=== PATIENT | male | born 1990 | race Caucasian/White ===

== ENCOUNTER 2016-11-13 07:06 | Inpatient (IN) | payer OTHER ==
[~2016-11-13] VITALS: Ht 170.2 cm; Wt 57.4 kg
[~2016-11-13 07:06] MED LIST: /DIVA50TA PO; /QUET10TA PO; /QUET25TA PO; DEPA500T2 PO; DIVA500T9 PO; REME15TA PO; VENL37CA PO; ZOLO100T PO
[2016-11-13] MEDS ORDERED: LAMI1TAB7 PO (07:23)
[2016-11-13 08:38] LABS: ALBUMIN 4.2 GM/DL (3.2-5.2); ALBUMIN/GLOBULIN RATIO 1.35 (1.00-1.93); ALKALINE PHOSPHATASE 78 U/L (45-117); ALT/SGPT 32 U/L (12-78); ANION GAP 9 MEQ/L (8-16); AST/SGOT 19 U/L (15-37); BILIRUBIN,DIRECT < 0.1 MG/DL (0.0-0.2); BILIRUBIN,TOTAL 0.3 MG/DL (0.2-1.0); BLOOD UREA NITROGEN 14 MG/DL (7-18); CALCIUM LEVEL 8.7 MG/DL (8.5-10.1); CARBON DIOXIDE LEVEL 24 MEQ/L (21-32); CHLORIDE LEVEL 109 MEQ/L (98-107); CREATININE FOR GFR 1.01 MG/DL (0.70-1.30); GLOMERULAR FILTRATION RATE > 60.0 (>60); GLUCOSE, FASTING 75 MG/DL (70-105); POTASSIUM SERUM 3.6 MEQ/L (3.5-5.1); SODIUM LEVEL 142 MEQ/L (136-145); TOTAL PROTEIN 7.3 GM/DL (6.4-8.2)
[2016-11-13 08:46] LABS: MEAN CORPUSCULAR HEMOGLOBIN 32.2 pg (27.0-33.0); MEAN CORPUSCULAR HGB CONC 33.8 g/dl (32.0-36.5); MEAN CORPUSCULAR VOLUME 95.3 fl (80.0-96.0); RED CELL DISTRIBUTION WIDTH 12.4 % (11.5-14.5); WHITE BLOOD COUNT 13.1 K/mm3 (4.0-10.0)
[2016-11-13] MEDS ORDERED: ZYRT10CA PO (10:22)
[2016-11-13] MEDS ORDERED: ACET500T37 PO (10:22)
[2016-11-13] MEDS ORDERED: IBUP40TA PO (10:22)
[2016-11-13 10:27] LABS: METHADONE URINE NEGATIVE (NEGATIVE)
[2016-11-13 14:30] VITALS: BP 119/67
[2016-11-13] MEDS ORDERED: ACETAMINOPHEN TAB 650MG DOSE (2X325MG) PO PRN (15:45)
[2016-11-13] MEDS ORDERED: traZODone 50 MG TAB PO PRN (15:45)
[2016-11-13] MEDS ORDERED: MAALOX 30 ML SUSP *UDC PO PRN (15:45)
[2016-11-13] MEDS ORDERED: MOM 30ML SUSPENSION UDC PO PRN (15:45)
--- NOTE | 2016-11-13 15:48 | HPE ---
DATE OF ADMISSION: 11/13/2016 CHIEF COMPLAINT: Feels stressed. SUBJECTIVE: He is 26 years old. He has been in the . He has a history of bipolar disorder. He says he was diagnosed "years ago," and has most recently been seen on [facility]. Says sees a psychiatrist there. He has been on Lamictal. He thinks it is about 100 mg daily. He attends his treatment there. He came in after he has been feeling increasingly stressed, distressed, upset, angry, marital difficulties. Suspected his partner has been seeing someone else. She had suggested, apparently, that she was talking to this other person. She had gone out at night and had apparently not returned at the time she was supposed to. He decided to drive around to the other person's place. Says he saw her car there, was further upset, came home, felt more despondent and depressed, and cut himself, both shoulders. Has felt suicidal, though suggests that cuts were in order to get emotional relief. Has been depressed, anxious, and upset. Has not been eating much. Says he thinks he has lost weight during these last few weeks as well and has had difficulties at times with concentrating. Says has trouble with things he is supposed to concentrate on. Tends to obsess on concerns regarding his relationship. He feels he obsesses about it. In addition to this, has been going back and forth between partner's place as well as her sister's place. Says gets along with her family and that they care for him. Has not been taking the Lamictal with any regularity the last few weeks. Suggests had stopped taking it deliberately the last few days but prior to that would tend to forget it on occasions. Says he felt that he was doing okay in regard to his mood, other than "the situation." Does not remember the last time he was elated in mood for any sustained period in time, though later suggests that he has had 2 or 3 days of that not too long ago. Last year, suggests was on Depakote and Seroquel. Says felt tired and thought sedated on the Seroquel. He at some point then decided to come off the medicines. Was off them for awhile and then resumed sometime last year. Denies has been drinking. Says that has not been an issue for the last few years. PAST PSYCHIATRIC HISTORY: Has had an inpatient hospitalization here. This was about 3 years ago when he was last year. He was active duty at the time and diagnosed with a mood disorder, adjustment disorder, antisocial personality disorder. Was on Seroquel and Depakote. Denies any symptoms related to posttraumatic stress. Says has had knocks on the head but not while in the . Did not go into details. Currently attends outpatient care. Says he does it on [facility]. He is on Lamictal at 100 mg daily. Does say he feels he did better when on the Depakote but not as well on the Seroquel, which he felt made him quite tired. The patient has had admissions in 2013 and 2012 over here as well. Some of those summaries, by Dr. Mukherjee, are reviewed. SUBSTANCE ABUSE HISTORY: He has used cannabis. Says stopped using alcohol many years ago. SOCIAL HISTORY: He did not go into many details. Please refer to the previous summaries for details of his social history. He is in the . He has been with his partner for the last several years. She has apparently three children of his own, whom he has essentially raised. He and his partner have been having difficulties for the last few months per the patient. MENTAL STATUS EXAMINATION: He is seen in the room in emergency room (ER). He is cooperative though a bit guarded and was pacing the room when I saw him, then sat on the stretcher, quite comfortable for the most part, though later appeared mildly anxious. No psychomotor retardation. He is coherent. No latency of response. Affect is restricted, somewhat intense at times. He is anxious. Has had thoughts of hurting himself. Denies any current plans at present. No homicidal ideas or intents. No evidence of any psychosis. Does not appear to be internally preoccupied at present. He is alert and oriented. No fluctuation of consciousness. Intellect is average, judgement and insight are quite questionable. VITAL SIGNS: Blood pressure 97/53, pulse 87, temperature 99.4. LABORATORY VALUES: Urine toxicology is positive for cannabis. Metabolic profile essentially within normal limits except for a slight increase in chloride at 109. Complete blood count essentially within normal limits except for white cell count of 13.1. ASSESSMENT: 1. Bipolar, type 2 disorder, current episode depressed, rule out mixed episode. 2. Marital difficulties. 3. Limited social supports. 4. Status post cuts on shoulders (the cuts did not require any stitches). Patient has been distressed, anxious, and depressed. Difficulties with his partner. All this exacerbating his mood. He has had suicidal thoughts. He cut himself to obtain relief. Judgment and insight remain questionable. PLAN: He will be admitted to the inpatient psychiatry unit, placed on relevant precautions We will look at resuming his Lamictal at 100 mg daily, possibly consider increasing it or adding valproic acid (Depakote) to help stabilize his moods. We will look at obtaining collateral information as well. He will be encouraged to involve himself in activity in the unit. He will be discharged with followup once he is stable. I will anticipate a 5-7-day stay. The assessment took 35 minutes. MICKI
[2016-11-13] MEDS: lamoTRIgine 100MG TAB PO SCH (16:18)
[2016-11-13 18:00] VITALS: BP 124/59
[2016-11-13] MEDS: OLANZapine ORAL DISINTEGRATING TAB 5MG PO PRN (20:45)
[2016-11-13] MEDS: NICOTINE 21MG/24HR 1 EA TRANSDERMAL TD SCH ×2 (20:46→20:48)
[2016-11-14 06:00] VITALS: BP 113/68
[2016-11-14] MEDS: lamoTRIgine 100MG TAB PO SCH (08:35)
[2016-11-14] MEDS: NICOTINE 21MG/24HR 1 EA TRANSDERMAL TD SCH (08:36)
[2016-11-14] MEDS: OLANZapine ORAL DISINTEGRATING TAB 5MG PO PRN ×2 (11:53→20:33)
[2016-11-14 12:00] VITALS: BP 126/72
[2016-11-14 18:00] VITALS: BP 135/80
--- NOTE | 2016-11-14 18:32 | IPN ---
DATE: 11/14/2016 CHIEF COMPLAINT: Feels stressed. SUBJECTIVE: Seen for followup. Indicates he remains stressed, but suggests perhaps not as intense as he has been recently. Feels depressed and there are times that he is quite irritated. Says he tries to calm himself down, manages to do that. At times it is more difficult. Says had a visit by his partner, Albina, and he is not quite sure where they stand. He wishes to continue the relationship, she is not so sure at present. Says her parents, who he gets along with quite well, want to visit as well. Sleep has been somewhat diminished. Appetite fair. MENTAL STATUS EXAMINATION: Neat, cooperative. Appears anxious, mildly irritated. Paces a bit, but less than he had yesterday. He is coherent. Affect is restricted in range. Vague on suicidal thoughts. No firm plans. No homicidal ideas or intents. Currently no evidence of any psychosis. Cognition is grossly intact. Judgment is questionable, as is insight. ASSESSMENT: 1. Bipolar type 2 disorder, current episode depressed. 2. Rule out mixed episode. PLAN: I would suggest that he continue Lamictal at 100 mg daily. Says he was off it for the last few weeks, and he wishes to use Depakote, which he says he felt better on in the past. I feel that is reasonable. We will start him on Depakote at 250 mg at night and titrate it up accordingly. We will continue the Lamictal for now as well. Further recommendations will be made depending on the clinical picture. He is aware of the risks, benefits and drawbacks of using the Depakote. We spoke about his stressors regarding his relationship. He will be involved in activities within the unit. He will be seeing the psychiatrist assigned to him and the treatment team tomorrow.
[2016-11-14] MEDS ORDERED: DIVALPROEX 250 MG TAB PO SCH (21:00)
--- NOTE | 2016-11-15 05:48 | HPE ---
DATE OF ADMISSION: 11/13/2016 HISTORY OF PRESENT ILLNESS: Please refer to psychiatric history and evaluation for further details on this admission. This examination and history is intended for medical issues, which may need treatment, followup or consult on this 26-year-old male. ALLERGIES: No known drug allergies. SOCIAL HISTORY: He is now out of the . He is without any children. ETHYL ALCOHOL (ETOH) Has a history of alcohol abuse. He quit drinking three months ago. He smokes 1-2 packs of cigarettes per day. RECREATIONAL DRUG USE: Marijuana. PAST MEDICAL HISTORY: Bipolar disorder, environmental allergies, headaches. PAST SURGICAL HISTORY: Corrective surgery for pigeon toes as a child bilaterally. HOME MEDICATIONS: - cetirizine 10 mg by mouth daily as needed for allergies - ibuprofen 400 mg by mouth every six hours as needed for headache - Lamictal 100 mg by mouth daily LABORATORY STUDIES: WBC 13.1, hemoglobin 15.7, hematocrit 46.4, platelets 304. Sodium 142, potassium 3.6, chloride 109, CO2 24, BUN 14, creatinine 1.01, and positive cannabinoids. REVIEW OF SYSTEMS: 10-systems review was done, was essentially negative. He had no complaints. PHYSICAL EXAMINATION: A 26-year-old cooperative male in no acute distress. Height 67 inches, weight 54 kg, body mass index (BMI) 18.6. VITAL SIGNS: Blood pressure 126/72, pulse 88, respirations 167, temperature 98.6. GENERAL: The patient is alert and oriented times three. HEENT: Pupils equal and reactive to light. Extraocular muscles (EOMs) are intact. Sclerae clear. Conjunctivae normal. No facial asymmetry. Pharynx, tongue and gums pink and moist. Tongue is midline. NECK: Supple without lymphadenopathy. No thyromegaly and no goiter. CHEST: Clear to auscultation. No wheeze or retractions. HEART: Regular. ABDOMEN: Benign. Bowel sounds positive. GENITOURINARY/RECTAL: Not done. EXTREMITIES: Equal strength, full range of motion. No cyanosis, clubbing or edema. Peripheral pulses equal and palpable bilaterally. SKIN: He has superficial lacerations bilateral sides of his anterior upper chest, scabbed. No redness or drainage. He has two healing cigarette francisco on his left upper arm which are scabbed. No redness or drainage. IMPRESSION AND PLAN: 1. Psychiatric plan per psychiatry. Monitor chest superficial lacerations for infection. 2. History of environmental allergies. Continue cetirizine. 3. History of headaches. Continue ibuprofen as needed. No acute medical issues.
[2016-11-15 06:18] VITALS: BP 120/58
[2016-11-15] MEDS: lamoTRIgine 100MG TAB PO SCH (08:14)
[2016-11-15] MEDS: NICOTINE 21MG/24HR 1 EA TRANSDERMAL TD SCH (08:14)
[2016-11-15] MEDS ORDERED: QUEtiapine FUMARATE 50 MG TAB PO PRN (11:00)
--- NOTE | 2016-11-15 11:09 | MHIPNPDOC ---
[facility] Progress Note Progress Note DATE OF SERVICE: 11/15/16 HISTORY: day 3 of admission, Pt admitted with SI after cutting himself. h/o bipolar disorder VITAL SIGNS: See below. NEW TEST RESULTS: na CURRENT MEDICATIONS: See below. MENTAL STATUS EXAMINATION: Patient is a 26-year old male, who is dressed in lounge clothes, clean shaven, good eye contact. Speech: Is pressured Language skills are intact Thought processes including: linear Thought content: appropriate. Abstract reasoning, and computation: good. Description of associations: good. Description of abnormal or psychotic thoughts: denies si and hi this morning, no psychotic symptoms illicited. Judgment: limited Insight: poor. Orientation: well oriented in all spheres. Recent and remote memory: intact Attention span and concentration: good Fund of knowledge: full Mood: manic. Affect: congruent DIAGNOSES: 1. Bipolar, type 2 disorder, current episode depressed, rule out mixed episode. 2. Cannabis dependence ASSESSMENT:Pt is very clear on what he will and won't do regarding medications and outpatient treatment. He does not like to feel sedated or slowed down. He states that part of the issue with his current SO is that he has been stopping his medication. [place]. He states every time he is seen he is told the same thing about diet and sleep and it is not helpful to him. Pt admits to insomnia due to thoughts - lots of thoughts all night long. They keep him awake. He has given up his job for school and has prospects of working at [employer] upon discharge. Pt states that Seroquel has been helpful to him both prn and for sleep in low doses. Pt reports he struggles to keep weight on. He admits to enjoying being busy and active He enjoys going to the gym. His slight stature is an issue for his self- esteem and he would benefit from help via therapy in this area. MANAGEMENT PLAN: Will raise Depakote to a therapeutic level. Pt has been on the medication before with good effect. Will add Seroquel at HS and for prn agitation/anxiety. pt states he intends to go to programming on the unit which is recommended. He is also agreeable to either changing outpatient providers or beginning therapy some where that is beneficial to him as he tries to put together his plans for the immediate future. He received information on the risks and benefits of all medication prescribed to him at this time. questions were answered. Metabolic syndrome was discussed. TIME SPENT: 30 minutes. Vital Signs Vital Signs Date Time Temp Pulse Resp B/P (MAP) Pulse Ox O2 Delivery O2 Flow Rate FiO2 11/15/16 06:18 97.7 87 18 120/58 (78) 11/13/16 13:34 97 Room Air Current Medications Current Medications Acetaminophen (Tylenol Tab) 650 mg Q6HP PRN PO HEADACHE or DISCOMFORT; Start at 15:45; Stop 12/13/16 at 15:44 Al Hydrox/Mg Hydrox/Simethicone (Mylanta) 30 ml Q4HP PRN PO HEARTBURN/ INDIGESTION; Start 11/13/16 at 15:45; Stop 12/13/16 at 15:44 Divalproex Sodium (Depakote Er) 500 mg QHS PO ; Start 11/15/16 at 21:00; Stop at 20:59; Status UNV Divalproex Sodium (Depakote) 250 mg QHS PO Last administered on 11/14/16 20:33 ; Start 11/14/16 at 21:00; Stop 11/15/16 at 10:57; Status DC Home Med (Med Rec Complete!) ASDIRECTED XX ; Start 11/13/16 at 10:30; Stop 03/22 at 10:30; Status DC Lamotrigine (LaMICtal) 100 mg DAILY PO Last administered on 11/15/16 08:14; Start 11/13/16 at 09:00; Stop 12/13/16 at 08:59 Magnesium Hydroxide (Milk Of Magnesia) 30 ml DAILYPRN PRN PO CONSTIPATION; Start 11/13/16 at 15:45; Stop 12/13/16 at 15:44 Nicotine (Nicoderm Cq 21mg) 1 patch DAILY TD Last administered on 11/15/16 08: 14; Start 11/12/16 at 09:00; Stop 12/12/16 at 08:59 Olanzapine (ZyPREXA ZYDIS) 5 mg Q4HP PRN PO AGITATION Last administered on 11/14/16 20:33; Start 11/13/16 at 15:45; Stop 11/15/16 at 10:54; Status DC Quetiapine Fumarate (SEROquel) 12.5 mg Q8HP PRN PO ANXIETY/AGITATION; Start 05/22 at 11:00; Stop 12/15/16 at 10:59; Status UNV Quetiapine Fumarate (SEROquel) 50 mg QHS PRN PO INSOMNIA; Start 11/15/16 at 11: 00; Stop 12/15/16 at 10:59; Status UNV Trazodone HCl (Desyrel) 50 mg QHSP PRN PO INSOMNIA Last administered on t 22:04; Start 11/13/16 at 15:45; Stop 11/15/16 at 10:54; Status DC Allergies Coded Allergies: Penicillins (Unverified Allergy, Unknown, unknown , 11/13/16) Sunitha Gage Nov 15, 2016 11:09
[2016-11-15 12:00] VITALS: BP 118/66
[2016-11-15 18:00] VITALS: BP 120/64
[2016-11-15] MEDS ORDERED: DIVALPROEX 500MG *ER* TAB PO SCH (21:00)
[2016-11-16 06:15] VITALS: BP 112/81
[2016-11-16] MEDS: lamoTRIgine 100MG TAB PO SCH (08:15)
[2016-11-16] MEDS: NICOTINE 21MG/24HR 1 EA TRANSDERMAL TD SCH (08:15)
[2016-11-16] MEDS: QUEtiapine FUMARATE 12.5 MG HALF-TAB PO PRN ×2 (10:21→21:01)
--- NOTE | 2016-11-16 11:00 | MHIPNPDOC ---
[facility] Progress Note Progress Note DATE OF SERVICE: 11/16/16 HISTORY: day 4 of admission/pt admitted with SI after relationship problem. h/o cutting VITAL SIGNS: See below. NEW TEST RESULTS: na CURRENT MEDICATIONS: See below. MENTAL STATUS EXAMINATION: Patient is a 26-year old male, who is wearing casual attire, clean shaven, good eye contact, pleasant. Speech: Is spontaneous Language skills are intact Thought processes including: goal directed Thought content: issues that led to him being admitted. Abstract reasoning, and computation: good. Description of associations: good. Description of abnormal or psychotic thoughts:no longer feeling suicidal. denies auditory and perceptual disturbances. No delusions noted. Judgment: limited Insight: good,. Orientation: A & O x 3 Recent and remote memory: grossly intact Attention span and concentration: good. Fund of knowledge: full Mood: depressed. Affect: congruent with broad range. DIAGNOSES: DIAGNOSES: 1. Bipolar, type 2 disorder, current episode depressed, rule out mixed episode. 2. Cannabis dependence ASSESSMENT:pt reporting poor sleep last night, he could not remain asleep. awakened frequently. believes Seroquel dose is insufficient. Tolerating Depakote without side effects. Lamictal unchanged.pt is attending programming and states they are beneficial to. Pt is attempting to connect with former GF just to make sure she and her children are doing okay but has not been able to speak to her - not answering when he calls. Pt's affect has an over tone of anger. Seems to be his baseline. MANAGEMENT PLAN: Discussed with pt the difficulty of treating bipolar disorder when meds are stopped and restarted frequently. Explained the benefits of regular dosing and keeping meds at a therapeutic level. Discussed how the brain can become intolerant of certain meds if they are not dosed consistently. Pt expressed understanding of information shared. Says he will forget to fill a med box. Suggested he set a weekly reminder on his phone so he can do this and remain on a steady course with the medication. Pt will be referred to Dr. Randolph' s service at pts request. Anticipate discharge early next week at the latest. TIME SPENT: 30 minutes. Vital Signs Vital Signs Date Time Temp Pulse Resp B/P (MAP) Pulse Ox O2 Delivery O2 Flow Rate FiO2 11/16/16 06:15 98.5 70 20 112/81 (91) 11/13/16 13:34 97 Room Air Current Medications Current Medications Acetaminophen (Tylenol Tab) 650 mg Q6HP PRN PO HEADACHE or DISCOMFORT; Start at 15:45; Stop 12/13/16 at 15:44 Al Hydrox/Mg Hydrox/Simethicone (Mylanta) 30 ml Q4HP PRN PO HEARTBURN/ INDIGESTION; Start 11/13/16 at 15:45; Stop 12/13/16 at 15:44 Divalproex Sodium (Depakote Er) 500 mg QHS PO Last administered on 11/15/16 20 :57; Start 11/15/16 at 21:00; Stop 12/15/16 at 20:59 Divalproex Sodium (Depakote) 250 mg QHS PO Last administered on 11/14/16 20:33 ; Start 11/14/16 at 21:00; Stop 11/15/16 at 10:57; Status DC Home Med (Med Rec Complete!) ASDIRECTED XX ; Start 11/13/16 at 10:30; Stop 03/22 at 10:30; Status DC Lamotrigine (LaMICtal) 100 mg DAILY PO Last administered on 11/16/16 08:15; Start 11/13/16 at 09:00; Stop 12/13/16 at 08:59 Magnesium Hydroxide (Milk Of Magnesia) 30 ml DAILYPRN PRN PO CONSTIPATION; Start 11/13/16 at 15:45; Stop 12/13/16 at 15:44 Nicotine (Nicoderm Cq 21mg) 1 patch DAILY TD Last administered on 11/16/16 08: 15; Start 11/12/16 at 09:00; Stop 12/12/16 at 08:59 Olanzapine (ZyPREXA ZYDIS) 5 mg Q4HP PRN PO AGITATION Last administered on 11/14/16 20:33; Start 11/13/16 at 15:45; Stop 11/15/16 at 10:54; Status DC Quetiapine Fumarate (SEROquel) 12.5 mg Q8HP PRN PO ANXIETY/AGITATION Last administered on 11/16/16 10:21; Start 11/15/16 at 11:00; Stop 12/15/16 at 10:59 Quetiapine Fumarate (SEROquel) 50 mg QHS PRN PO INSOMNIA Last administered on 20:56; Start 11/15/16 at 11:00; Stop 11/16/16 at 10:42; Status DC Trazodone HCl (Desyrel) 50 mg QHSP PRN PO INSOMNIA Last administered on 22:04; Start 11/13/16 at 15:45; Stop 11/15/16 at 10:54; Status DC Allergies Coded Allergies: Penicillins (Unverified Allergy, Unknown, unknown , 11/13/16) Sunitha Gage Nov 16, 2016 11:00
[2016-11-16 18:36] VITALS: BP 118/69
[2016-11-16] MEDS: DIVALPROEX 250MG *ER* TAB PO SCH (21:01)
[2016-11-16] MEDS: QUEtiapine FUMARATE 100 MG TAB PO SCH (22:30)
[2016-11-17 06:30] VITALS: BP 109/62
[2016-11-17] MEDS: lamoTRIgine 100MG TAB PO SCH (08:08)
[2016-11-17] MEDS: NICOTINE 21MG/24HR 1 EA TRANSDERMAL TD SCH (08:08)
--- NOTE | 2016-11-17 10:31 | IPNPDOC ---
Subjective Date Seen The patient was seen on 11/17/16. Subjective Chief Complaint/HPI The patient is a 26-year-old male admitted with a reason for visit of Depressive Disorder. Events since last encounter To evaluate the patient regarding chest pain. He states he has had sharp pains in the mid chest area. No change with swallowing or rubbing. Some increased with a deep breath. He states sometimes he gets chest discomfort with his anxiety however he states it does not feel like it usually does with his anxiety. He reports no palpitations. No acid taste in his mouth or reflux symptoms. Objective Physical Examination General Exam: Positive: Alert Eye Exam: Positive: PERRLA ENT Exam: Positive: Atraumatic Chest Exam: Positive: Clear to auscultation, Normal air movement Heart Exam: Positive: Rate Normal, Regular Rhythm, Normal S1, Normal S2, Negative: Murmurs, Rubs Extremity Exam: Positive: Normal pulses, Negative: Clubbing, Cyanosis, Edema Skin Exam: Positive: Nl turgor and temperature Assessment /Plan Problems (1) Chest pain Status: Acute Problem Text: * Patient will try Mylanta by mouth 1 now. * Request EKG. * Update CBC/CMP * CIP and troponin 1 now and repeat in 6 hours. * Depakote level. * Monitor. Plan/VTE VTE Prophylaxis Ordered?: No (ambulatory) VS, I&O, 24H, Fishbone Vital Signs/I&O Vital Signs Date Time Temp Pulse Resp B/P (MAP) Pulse Ox O2 Delivery O2 Flow Rate FiO2 11/17/16 06:30 98.8 75 18 109/62 (78) Room Air 11/13/16 13:34 97 Richa Arreaga Nov 17, 2016 10:31
[2016-11-17] MEDS: QUEtiapine FUMARATE 12.5 MG HALF-TAB PO PRN (11:32)
[2016-11-17 11:47] LABS: MEAN CORPUSCULAR HEMOGLOBIN 33.2 pg (27.0-33.0); MEAN CORPUSCULAR HGB CONC 34.9 g/dl (32.0-36.5); MEAN CORPUSCULAR VOLUME 95.4 fl (80.0-96.0); RED CELL DISTRIBUTION WIDTH 12.3 % (11.5-14.5)
[2016-11-17 13:01] LABS: ALBUMIN 3.9 GM/DL (3.2-5.2); ALBUMIN/GLOBULIN RATIO 1.22 (1.00-1.93); ALKALINE PHOSPHATASE 69 U/L (45-117); ALT/SGPT 33 U/L (12-78); ANION GAP 9 MEQ/L (8-16); AST/SGOT 19 U/L (15-37); BILIRUBIN,TOTAL 0.2 MG/DL (0.2-1.0); BLOOD UREA NITROGEN 17 MG/DL (7-18); CALCIUM LEVEL 9.4 MG/DL (8.5-10.1); CARBON DIOXIDE LEVEL 28 MEQ/L (21-32); CHLORIDE LEVEL 104 MEQ/L (98-107); CREATININE FOR GFR 0.99 MG/DL (0.70-1.30); GLOMERULAR FILTRATION RATE > 60.0 (>60); GLUCOSE, FASTING 78 MG/DL (70-105); POTASSIUM SERUM 4.4 MEQ/L (3.5-5.1); SODIUM LEVEL 141 MEQ/L (136-145); TOTAL PROTEIN 7.1 GM/DL (6.4-8.2)
--- NOTE | 2016-11-17 14:27 | MHIPNPDOC ---
[facility] Progress Note Progress Note DATE OF SERVICE: 11/17/16 HISTORY: day 5, pt admitted after harming self due to interpersonal conflict, pt had SI and off meds. VITAL SIGNS: See below. NEW TEST RESULTS: depakote level pending CURRENT MEDICATIONS: See below. MENTAL STATUS EXAMINATION: Patient is a 26-year old male, who is wearing hospital attire, visible in hallways, good eye contact, states needs well, cooperative. Speech: Is clear and spontaneous Language skills are good Thought processes including: goal directed Thought content: appropriate. Abstract reasoning, and computation: good. Description of associations: good. Description of abnormal or psychotic thoughts: none Judgment: fair Insight: fair. Orientation: well oriented in all spheres. Recent and remote memory: intact Attention span and concentration: good. Fund of knowledge: full. Mood: euthymic. Affect: congruent. DIAGNOSES: 1. Bipolar, type 2 disorder, current episode depressed, rule out mixed episode. 2. Cannabis dependence ASSESSMENT:pt is even in mood, improving with decreased anger and calmer affect. pt is participating in groups and compliant with medication changes. reports awakening several times during the night but able to fall back to sleep. gets along well with peers. no obsessions or delusions noted. MANAGEMENT PLAN: order for shoes without laces provided. depakote level pending , continue meds and observation. Enc groups and skill building. TIME SPENT: 15 minutes. Vital Signs Vital Signs Date Time Temp Pulse Resp B/P (MAP) Pulse Ox O2 Delivery O2 Flow Rate FiO2 11/17/16 06:30 98.8 75 18 109/62 (78) Room Air 11/13/16 13:34 97 Laboratory Data 24H Labs Laboratory Tests 2 11/17/16 10:56: Anion Gap 9, Glomerular Filtration Rate > 60.0, Blood Urea Nitrogen 17, Creatinine 0.99, Sodium Level 141, Potassium Level 4.4, Chloride Level 104, Carbon Dioxide Level 28, Calcium Level 9.4, Aspartate Amino Transf (AST/SGOT) 19 , Alanine Aminotransferase (ALT/SGPT) 33, Total Creatine Kinase 98, Alkaline Phosphatase 69, Total Bilirubin 0.2, Total Protein 7.1, Albumin 3.9, Creatine Kinase MB 1.0, Creatine Kinase MB Relative Index 1.02, Troponin I < 0.02, Albumin/Globulin Ratio 1.22, Valproic Acid (Depakene) Level 47.2L CBC/BMP Laboratory Tests 11/17/16 10:56 Red Blood Count 4.82, Mean Corpuscular Volume 95.4, Mean Corpuscular Hemoglobin 33.2 H, Mean Corpuscular Hemoglobin Concent 34.9, Red Cell Distribution Width 12.3, Calcium Level 9.4, Aspartate Amino Transf (AST/SGOT) 19, Alanine Aminotransferase (ALT/SGPT) 33, Total Creatine Kinase 98, Alkaline Phosphatase 69, Total Bilirubin 0.2, Total Protein 7.1, Albumin 3.9 Current Medications Current Medications Acetaminophen (Tylenol Tab) 650 mg Q6HP PRN PO HEADACHE or DISCOMFORT; Start at 15:45; Stop 12/13/16 at 15:44 Al Hydrox/Mg Hydrox/Simethicone (Mylanta) 30 ml Q4HP PRN PO HEARTBURN/ INDIGESTION Last administered on 11/17/16 09:34; Start 11/13/16 at 15:45; Stop 12/13/16 at 15:44 Divalproex Sodium (Depakote Er) 500 mg QHS PO Last administered on 11/15/16 20 :57; Start 11/15/16 at 21:00; Stop 11/16/16 at 11:02; Status DC Divalproex Sodium (Depakote Er) 750 mg QHS PO Last administered on 11/16/16 21 :01; Start 11/16/16 at 21:00; Stop 12/16/16 at 20:59 Divalproex Sodium (Depakote) 250 mg QHS PO Last administered on 11/14/16 20:33 ; Start 11/14/16 at 21:00; Stop 11/15/16 at 10:57; Status DC Home Med (Med Rec Complete!) ASDIRECTED XX ; Start 11/13/16 at 10:30; Stop 03/22 at 10:30; Status DC Lamotrigine (LaMICtal) 100 mg DAILY PO Last administered on 11/17/16 08:08; Start 11/13/16 at 09:00; Stop 12/13/16 at 08:59 Magnesium Hydroxide (Milk Of Magnesia) 30 ml DAILYPRN PRN PO CONSTIPATION; Start 11/13/16 at 15:45; Stop 12/13/16 at 15:44 Nicotine (Nicoderm Cq 21mg) 1 patch DAILY TD Last administered on 11/17/16 08: 08; Start 11/12/16 at 09:00; Stop 12/12/16 at 08:59 Olanzapine (ZyPREXA ZYDIS) 5 mg Q4HP PRN PO AGITATION Last administered on 11/14/16 20:33; Start 11/13/16 at 15:45; Stop 11/15/16 at 10:54; Status DC Quetiapine Fumarate (SEROquel) 12.5 mg Q8HP PRN PO ANXIETY/AGITATION Last administered on 11/17/16 11:32; Start 11/15/16 at 11:00; Stop 12/15/16 at 10:59 Quetiapine Fumarate (SEROquel) 50 mg QHS PRN PO INSOMNIA Last administered on 20:56; Start 11/15/16 at 11:00; Stop 11/16/16 at 10:42; Status DC Quetiapine Fumarate (SEROquel) 100 mg QHS PO Last administered on 11/16/16 22: 30; Start 11/16/16 at 21:00; Stop 12/16/16 at 20:59 Trazodone HCl (Desyrel) 50 mg QHSP PRN PO INSOMNIA Last administered on 22:04; Start 11/13/16 at 15:45; Stop 11/15/16 at 10:54; Status DC Allergies Coded Allergies: Penicillins (Unverified Allergy, Unknown, unknown , 11/13/16) Sunitha Gage Nov 17, 2016 14:27
[2016-11-17 18:24] VITALS: BP 129/82
[2016-11-17] MEDS: DIVALPROEX 250MG *ER* TAB PO SCH (20:36)
[2016-11-17] MEDS: QUEtiapine FUMARATE 100 MG TAB PO SCH (22:18)
--- NOTE | 2016-11-17 22:33 | ECGEPIP ---
Stationary ECG Study [facility] Test Date: 2016-11-17 Pat Name: THERESA WILLETT Department: Room: [place] [address] Gender: M Information Services Assistant: : 1990 Requested By: Richa Arreaga Order Number: [id number] Reading MD: Álvaro Huntley Measurements Intervals [place] Rate: 75 P: 73 DC: 173 QRS: 84 QRSD: 101 T: 67 QT: 359 QTc: 402 Interpretive Statements Normal sinus rhythm Early anterior R-wave progression No significant change since prior tracing of 08/27/2013 Electronically Signed On 11-17-2016 22:33:03 EDT by Álvaro Huntley
[2016-11-18 06:00] VITALS: BP 116/63
[2016-11-18] MEDS: lamoTRIgine 100MG TAB PO SCH (08:19)
[2016-11-18] MEDS: NICOTINE 21MG/24HR 1 EA TRANSDERMAL TD SCH (08:20)
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
[2016-11-18 18:00] VITALS: BP 130/79
[2016-11-18] MEDS: QUEtiapine FUMARATE 12.5 MG HALF-TAB PO PRN (19:03)
[2016-11-18] MEDS: DIVALPROEX 250MG *ER* TAB PO SCH (21:57)
[2016-11-18] MEDS: QUEtiapine FUMARATE 100 MG TAB PO SCH (23:01)
[2016-11-19 06:00] VITALS: BP 112/60
[2016-11-19] MEDS: lamoTRIgine 100MG TAB PO SCH (08:32)
[2016-11-19] MEDS: NICOTINE 21MG/24HR 1 EA TRANSDERMAL TD SCH (08:32)
--- NOTE | 2016-11-19 13:00 | MHIPNPDOC ---
[facility] Progress Note Progress Note DATE OF SERVICE: 11/19/16 HISTORY: day 7 of admission. Pt was suicidal following an argument with SO. Cut himself on both shoulders. VITAL SIGNS: See below. NEW TEST RESULTS: na. CURRENT MEDICATIONS: See below. MENTAL STATUS EXAMINATION: Patient is a 26-year old male, who is wearing lounge clothes, pleasant on approach, hygiene appears good. Speech: Is spontaneous and clear Language skills are good. Thought processes including: linear, organized. Thought content: setting boundaries with GF. Abstract reasoning, and computation : good. Description of associations: good. Description of abnormal or psychotic thoughts: none, no psychosis, denies intent or plan to harm self or others.. Judgment: fair Insight:good, Orientation: oriented in all spheres. Recent and remote memory: grossly intact Attention span and concentration: good Fund of knowledge: full Mood: euthymic Affect: congruent DIAGNOSES: 1. Bipolar, type 2 disorder, current episode depressed, rule out mixed episode. 2. Cannabis dependence ASSESSMENT:pt will be appropriate for discharge after this weekend. He is gaining insight into his behaviors and how to deal with upsets and disappointments more appropriately than cutting himself. Pt has been educated on the need to remain on medication and not stop and start it without discussing with health care providers first. Pt's sleep is beginning to improve since he has been here. He feels more relaxed. He interacts appropriately with staff and peers. He eats at most meals and is pleased that he is gaining some weight. Pt denies thoughts of harming self or others. MANAGEMENT PLAN: Pt states he feels "pretty good" on current medication doses. There is room to increase if necessary once he is discharged if necessary. We are planning a meeting for Tuesday, the soonest we can get all involved in the discharge together. Following the meeting on Tuesday he can be discharged if stable. He wants to terminate with his current psychiatrist and begin seeing Dr. Randolph. H understands he must make [facility] aware of this so they can put a referral in to help him achieve this. Pt was asking about receiving medical marijuana. Was informed that this provider is not prepared to offer that treatment and is not aware that it is available for his diagnosis. TIME SPENT: 15 minutes. Vital Signs Vital Signs Date Time Temp Pulse Resp B/P (MAP) Pulse Ox O2 Delivery O2 Flow Rate FiO2 11/19/16 06:00 98.2 86 16 112/60 (77) 11/17/16 06:30 Room Air 11/13/16 13:34 97 Current Medications Current Medications Acetaminophen (Tylenol Tab) 650 mg Q6HP PRN PO HEADACHE or DISCOMFORT; Start at 15:45; Stop 12/13/16 at 15:44 Al Hydrox/Mg Hydrox/Simethicone (Mylanta) 30 ml Q4HP PRN PO HEARTBURN/ INDIGESTION Last administered on 11/17/16 09:34; Start 11/13/16 at 15:45; Stop 12/13/16 at 15:44 Divalproex Sodium (Depakote Er) 500 mg QHS PO Last administered on 11/15/16 20 :57; Start 11/15/16 at 21:00; Stop 11/16/16 at 11:02; Status DC Divalproex Sodium (Depakote Er) 750 mg QHS PO Last administered on 11/18/16 21 :57; Start 11/16/16 at 21:00; Stop 12/16/16 at 20:59 Divalproex Sodium (Depakote) 250 mg QHS PO Last administered on 11/14/16 20:33 ; Start 11/14/16 at 21:00; Stop 11/15/16 at 10:57; Status DC Home Med (Med Rec Complete!) ASDIRECTED XX ; Start 11/13/16 at 10:30; Stop 03/22 at 10:30; Status DC Lamotrigine (LaMICtal) 100 mg DAILY PO Last administered on 11/19/16 08:32; Start 11/13/16 at 09:00; Stop 12/13/16 at 08:59 Magnesium Hydroxide (Milk Of Magnesia) 30 ml DAILYPRN PRN PO CONSTIPATION; Start 11/13/16 at 15:45; Stop 12/13/16 at 15:44 Nicotine (Nicoderm Cq 21mg) 1 patch DAILY TD Last administered on 11/19/16 08: 32; Start 11/12/16 at 09:00; Stop 12/12/16 at 08:59 Olanzapine (ZyPREXA ZYDIS) 5 mg Q4HP PRN PO AGITATION Last administered on 11/14/16 20:33; Start 11/13/16 at 15:45; Stop 11/15/16 at 10:54; Status DC Quetiapine Fumarate (SEROquel) 12.5 mg Q8HP PRN PO ANXIETY/AGITATION Last administered on 11/18/16 19:03; Start 11/15/16 at 11:00; Stop 12/15/16 at 10:59 Quetiapine Fumarate (SEROquel) 50 mg QHS PRN PO INSOMNIA Last administered on 20:56; Start 11/15/16 at 11:00; Stop 11/16/16 at 10:42; Status DC Quetiapine Fumarate (SEROquel) 100 mg QHS PO Last administered on 11/18/16 23: 01; Start 11/16/16 at 21:00; Stop 12/16/16 at 20:59 Trazodone HCl (Desyrel) 50 mg QHSP PRN PO INSOMNIA Last administered on 22:04; Start 11/13/16 at 15:45; Stop 11/15/16 at 10:54; Status DC Allergies Coded Allergies: Penicillins (Unverified Allergy, Unknown, unknown , 11/13/16) Sunitha Gage Nov 19, 2016 13:00
[2016-11-19] MEDS: QUEtiapine FUMARATE 12.5 MG HALF-TAB PO PRN (15:45)
[2016-11-19 18:00] VITALS: BP 124/61
[2016-11-19] MEDS: DIVALPROEX 250MG *ER* TAB PO SCH (21:39)
[2016-11-19] MEDS: QUEtiapine FUMARATE 100 MG TAB PO SCH (22:55)
[2016-11-20 06:38] VITALS: BP 101/61
[2016-11-20] MEDS: lamoTRIgine 100MG TAB PO SCH (08:36)
[2016-11-20] MEDS: NICOTINE 21MG/24HR 1 EA TRANSDERMAL TD SCH (08:36)
[2016-11-20 18:33] VITALS: BP 135/76
[2016-11-20] MEDS: DIVALPROEX 250MG *ER* TAB PO SCH (21:48)
[2016-11-20] MEDS: QUEtiapine FUMARATE 100 MG TAB PO SCH (23:18)
[2016-11-21 06:20] VITALS: BP 112/57
[2016-11-21] MEDS: lamoTRIgine 100MG TAB PO SCH (08:38)
[2016-11-21] MEDS: NICOTINE 21MG/24HR 1 EA TRANSDERMAL TD SCH (08:39)
[2016-11-21 18:00] VITALS: BP 120/66
[2016-11-21] MEDS: QUEtiapine FUMARATE 12.5 MG HALF-TAB PO PRN (19:59)
[2016-11-21] MEDS: DIVALPROEX 250MG *ER* TAB PO SCH (21:44)
[2016-11-21] MEDS: QUEtiapine FUMARATE 100 MG TAB PO SCH (23:02)
[2016-11-22 07:22] VITALS: BP 135/65
[2016-11-22] MEDS: NICOTINE 21MG/24HR 1 EA TRANSDERMAL TD SCH (08:14)
[2016-11-22] MEDS: lamoTRIgine 100MG TAB PO SCH (08:14)
[2016-11-22] MEDS ORDERED: DEPA250T2 PO (08:52)
[2016-11-22] MEDS ORDERED: QUET1TAB8 PO (08:53)
--- NOTE | 2016-11-22 10:41 | MHDSPDOC ---
[facility] Discharge Summary Discharge Summary DATE OF ADMISSION: Nov 13, 2016 at 13:22 DATE OF DISCHARGE: November 22, 2016 at Noon DISCHARGE DIAGNOSES: 1. bipolar disorder type II, most recent episode depressed, without psychotic features. 2. Cannabis dependence REASON FOR ADMISSION: apparently pt and significant other have been at odds about their relationship. He is very attached to her and her children. They argued and she left home and he found her car at a person's house he did not want her to visit. It may have been another's man's house. The patient is not . He started staying at his girlfriends, sister's house. Apparently the patient resumed old behavior of self-mutilation and began cutting himself bilaterally on the shoulders. He has about 4-5 superficial cuts to both shoulders.They have been healing well. He has other cuts to left forearm that are still visible from years ago when he was cutting. CONSULTANTS INVOLVED: Lab, medicine, psychiatry. TREATMENT AND PROGRESS ON THE UNIT : pt was an active participant in his care from the start of admission. He admitted he stopped his medication for about a month or so and was becoming more irritable over time. He was on Depakote previously but had stopped it in favor or lamotrigine at 100 mg. He denied any difficulty with taking either lamotrigine or Depakote. He also said he had been having trouble sleeping due to racing thoughts and stated Seroquel had been helpful to him in the past. Pt attended therapeutic programming the entire time he was on the unit. He identifies learning some more appropriate ways to deal with his frustration an danger than cutting himself. He can use music, skateboarding and spending time outdoors as a way to de-stress. He also states he has formed a friendship with his roommate and he hopes they can remain in contact after discharge. HOSPITAL COURSE: Salvador was agreeable to lab tests for Depakote level. on 11.17 level was 47.2 @ 10:56 a.m. At 16:30 level was 53.1 that same day. Level redone on 11/21 at 7 p.m. was 47.9. Pt stated he feels the medication has helped him feel more level. He has less moods that are up and then down. He reports good sleep. Denies side effects to meds. He is using Seroquel at to help with racing thoughts. He was on lamotrigine when admitted and no adjustments were made to this medication. DISCHARGE ASSESSMENT: Discharge planning meeting held with pt, ex-girlfriend Albina, sister and niece of ex-girlfriend. It was a cordial meeting and the ladies seem to have Salvador's best interest at heart. They asked questions to help them know when Salvador was decompensating and needing help. Salvador was able to provide that information himself, identifying insomnia times several days as a main indicator. He will be staying at the sister's house. He has his own transportation and a potential job at [employer] [place] after discharge. Pt denies thoughts plan or intentions of harming self or others. His thinking is clear and coherent. He is sleeping well. He states he is accepting of Albina' s decision to end their boyfriend girlfriend relationship and stay friends only. He hopes to see her children to visit with them from time to time. Pt agrees to continue medications and not stop them abruptly. He is agreeable to attending [facility] until he receives a referral and appt to see providers at the [facility]. Pt states he understands risks and benefits to his medications and is aware that he should have his Depakote level repeated at the end of the month. MENTAL STATUS EXAMINATION ON DISCHARGE: Patient is a 26-year old male, who is dressed in street clothes, appears clean, unshaven, makes good eye contact, calm. Speech is clear and spontaneous. Language skills are good. Thought processes including: linear and goal directed Thought content: appropriate. Abstract reasoning, and computation: good. Description of associations: good. Description of abnormal or psychotic thoughts: no psychosis observed during this admission. Judgment: limited Insight: fair Orientation to person, place, time and situation. Recent and remote memory: appears intact. Attention span and concentration: good. Fund of knowledge: full Mood: euthymic Affect: broad with range MEDICATIONS ON DISCHARGE: - Depakote for impulse control (Depakene) - lamotrigine 100 mg for mood stabilization, decrease occurrence of depressive episodes. - Seroquel for racing thoughts, mood stabilization. PLAN/FOLLOWUP ARRANGEMENTS: [facility] tomorrow. The amount of time spent in the coordination of care for this patient was approximately 45 minutes. Vital Signs/I&Os Vital Signs Date Time Temp Pulse Resp B/P (MAP) Pulse Ox O2 Delivery O2 Flow Rate FiO2 11/22/16 07:22 98.9 60 18 135/65 (88) 11/19/16 10:22 Room Air Laboratory Data Labs 24H Laboratory Tests 2 11/21/16 19:23: Valproic Acid (Depakene) Level 47.9L Medications Scheduled Divalproex Sodium (Depakote ER) 250 Mg Tab, 750 MG PO QHS for MOOD for 7 Days, # 21 Lamotrigine (Lamictal) 100 Mg Tab, 100 MG PO DAILY, (Reported) Quetiapine Fumerate (Quetiapine Fumarate) 100 Mg Tab, 100 MG PO QHS for MOOD for 7 Days, #7 Scheduled PRN Acetaminophen (Acetaminophen Extra Stren) 500 Mg Tab, 1,000 MG PO for PAIN, ( Reported) Cetirizine HCl (Zyrtec Allergy) 10 Mg Cap, 10 MG PO DAILY PRN for allergies, ( Reported) Ibuprofen (Ibuprofen) 400 Mg Tab, 400 MG PO for PAIN, (Reported) Allergies Coded Allergies: Penicillins (Unverified Allergy, Unknown, unknown , 11/13/16) Sunitha Gage Nov 22, 2016 10:41
== END 2016-11-22 11:40 | disposition home or self-care (01) | DRG 885 ==
LOC: M ED 08:18 → M ED INP 13:22 → M PSY 14:18
PROVIDERS: ADMIT Psychiatry & Neurology Psychiatry; ATTEND Psychiatry & Neurology Psychiatry
DX: F31.81 Bipolar II disorder (principal); Z68.1 Body mass index [BMI] 19.9 or less, adult; F12.20 Cannabis dependence, uncomplicated; Z91.5 Personal history of self-harm; Z79.899 Other long term (current) drug therapy; Z88.0 Allergy status to penicillin; F17.210 Nicotine dependence, cigarettes, uncomplicated; J30.9 Allergic rhinitis, unspecified; R51 Headache; R07.9 Chest pain, unspecified

== ENCOUNTER 2017-03-14 18:14 | Inpatient (IN) | payer OTHER ==
[~2017-03-14] VITALS: Ht 170.2 cm; Wt 58.0 kg
[~2017-03-14 18:14] MED LIST changes: +ACET-683 PO; +DEPA250T2 PO; +IBUP40TA PO; +LAMI1TAB7 PO; +QUET1TAB8 PO; +ZYRT10CA PO
[2017-03-14 19:47] LABS: MEAN CORPUSCULAR HEMOGLOBIN 32.6 pg (27.0-33.0); MEAN CORPUSCULAR VOLUME 93.2 fl (80.0-96.0); RED CELL DISTRIBUTION WIDTH 12.6 % (11.5-14.5); WHITE BLOOD COUNT 12.3 10^3/uL (4.0-10.0)
[2017-03-14 20:14] LABS: ALBUMIN/GLOBULIN RATIO 1.29 (1.00-1.93); ALKALINE PHOSPHATASE 55 U/L (45-117); ALT/SGPT 27 U/L (12-78); ANION GAP 7 MEQ/L (8-16); AST/SGOT 25 U/L (15-37); BILIRUBIN,DIRECT < 0.1 MG/DL (0.0-0.2); BILIRUBIN,TOTAL 0.4 MG/DL (0.2-1.0); BLOOD UREA NITROGEN 8 MG/DL (7-18); CALCIUM LEVEL 9.2 MG/DL (8.5-10.1); CARBON DIOXIDE LEVEL 26 MEQ/L (21-32); CHLORIDE LEVEL 107 MEQ/L (98-107); CREATININE FOR GFR 0.79 MG/DL (0.70-1.30); GLOMERULAR FILTRATION RATE > 60.0 (>60); GLUCOSE, FASTING 75 MG/DL (70-105); POTASSIUM SERUM 3.7 MEQ/L (3.5-5.1); SODIUM LEVEL 140 MEQ/L (136-145); TOTAL PROTEIN 7.1 GM/DL (6.4-8.2)
[2017-03-14 20:18] LABS: METHADONE URINE NEGATIVE (NEGATIVE)
[2017-03-14] MEDS: ARIPiprazole 10 MG TAB PO SCH (21:00)
[2017-03-14] MEDS ORDERED: DEPA250T2 PO (21:14)
[2017-03-14] MEDS ORDERED: HALOPERIDOL 5 MG/ML VIAL (J1630) IM ONE (21:30)
[2017-03-14] MEDS ORDERED: ACETAMINOPHEN TAB 650MG DOSE (2X325MG) PO PRN (21:30)
[2017-03-14] MEDS ORDERED: diphenhydrAMINE INJ 50MG/ML VIAL (J1200) IM ONE (21:30)
[2017-03-14] MEDS ORDERED: MOM 30ML SUSPENSION UDC PO PRN (21:30)
[2017-03-14] MEDS ORDERED: LORazepam 2 MG/ML VIAL (J2060) IM ONE (21:30)
[2017-03-14] MEDS ORDERED: MAALOX 30 ML SUSP *UDC PO PRN (21:30)
[2017-03-15] MEDS ORDERED: diphenhydrAMINE 50 MG CAP PO PRN (05:00)
[2017-03-15 08:32] VITALS: BP 113/61
--- NOTE | 2017-03-15 08:56 | HPEPDOC ---
[facility] Medical History & Physical Date of Admission Mar 14, 2017 History and Physical PCP: [facility] ATTENDING: Dr. Johnny Shaw HPI: 26yoM admitted to [facility] for bipolar disorder, being medically examined today. No acute medical complaints today. Patient states he has been noncompliant with his medication. Patient states he cut his left arm with a bic razor. Patient states he takes Depakote for his mood however had not been taking it recently. Denies any fevers, chills, weakness, fatigue, CEE, CP, SOB, cough, palpitations, abdominal pain, N/V/D or changes in bowel or bladder habits. PMHx: Bipolar disorder anxiety depression ADHD H/O SI/Suicide attempt. Attempted hanging in past. Substance use Self-mutilation Chronic headache History of skull fracture as a child related to fall h/o non compliance PSHX: Corrective surgery for intoeing as a child SOCHX: Resides in: [facility] Marital Status: Single Kids: 3 Employment: [employer] employee Tobacco use: 2 ppd ETOH: Denies Illicit Drugs: Marijuana daily IV Drug Use: Denies Tattoos done unprofessionally: Patient states "most of them" FAMHX: Mother: Alive, well Father: Alive, well Siblings: Alive, well Children: Alive, well Unexpected deaths due to medical reasons: None. ROS: As noted in HPI, otherwise 11pt ROS of systems reviewed and unremarkable. PE: GEN: 26yoM, appears stated age. Thin appearing. No acute distress. Alert and oriented x 3. Agitated at times during interview. HEENT: Normocephalic, atraumatic. Pupils are equal, round, and reactive to light. Extraocular movements are intact. No nystagmus appreciated. Sclera are nonicteric. Conjunctiva without injection. Nose midline. Nasal turbinates without bogginess. EACs both patent BL. TMs both visualized and palacios with good cone of light, no bulging or erythema. No facial asymmetry. Moist mucous membranes. Dentition fair. Pharynx pink and moist, no cobblestoning. Neck supple , trachea midline. No lymphadenopathy or thyromegaly appreciated. CHEST: Regular rate and rhythm, +S1, +S2 LUNGS: Clear to auscultation bilaterally. No wheezes, rales, or rhonchi. Breathing appears symmetric and easy. Patient is speaking in full sentences. No accessory muscle use. ABD: Round, soft, non-tender, non-distended. +Bowel sounds throughout. No rebound or guarding. No costovertebral angle tenderness. EXT: Pulses 2+ bilaterally dorsalis pedis and radial. No lower extremity edema appreciated. SKIN: [place], dry, warm. Superficial lacerations are noted to left forearm (pt carved the word "loser" and "POS"). NEURO: Alert and oriented x 3. Cranial nerves III-XII are intact. No focal deficits appreciated. EKG: Pending A&P: 26yoM admitted to [facility] for bipolar disorder 1. Psych. Plan per Psychiatry. Obtain baseline EKG to assure the safety of psychiatric medications as they can prolong the QT interval. 2. Nicotine dependence. Patch available. 3. Left forearm lacerations. Apply dry dressing twice a day. Apply Bactroban twice a day. Update Td. Monitor. 4. Follow up with PCP on discharge. 5. Substance use per psychiatry. Tattoos done unprofessionally. Patient agrees to HIV and hepatitis screening. Leukocytosis. Patient is afebrile. Asymptomatic. Recheck CBC in a.m. Staff member Syed present throughout exam. Vital Signs Vital Signs Date Time Temp Pulse Resp B/P (MAP) Pulse Ox O2 Delivery O2 Flow Rate FiO2 03/15/17 08:32 98.6 76 20 113/61 (78) 98 Room Air Laboratory Data Labs 24H Laboratory Tests 2 03/14/17 19:23: Urine Amphetamines Screen NEGATIVE, Urine Benzodiazepines Screen NEGATIVE, Urine Opiates Screen NEGATIVE, Urine Methadone Screen NEGATIVE, Urine Barbiturates Screen NEGATIVE, Urine Phencyclidine Screen NEGATIVE, Urine Cocaine Metabolite Screen NEGATIVE, Urine Cannabinoids Screen NEGATIVE 03/14/17 19:31: Anion Gap 7L, Glomerular Filtration Rate > 60.0, Calcium Level 9.2, Aspartate Amino Transf (AST/SGOT) 25, Alanine Aminotransferase (ALT/SGPT) 27, Alkaline Phosphatase 55, Total Bilirubin 0.4, Direct Bilirubin < 0.1, Total Protein 7.1, Albumin 4.0, Albumin/Globulin Ratio 1.29, Thyroid Stimulating Hormone (TSH) 1.460, Salicylates Level 3.8L, Acetaminophen Level < 2.0L, Valproic Acid ( Depakene) Level 35.9L, Ethyl Alcohol Level < 0.003 CBC/BMP Laboratory Tests 03/14/17 19:31 Red Blood Count 4.57, Mean Corpuscular Volume 93.2, Mean Corpuscular Hemoglobin 32.6, Mean Corpuscular Hemoglobin Concent 35.0, Red Cell Distribution Width 12.6 Home Medications Scheduled Divalproex Sodium (Depakote ER) 250 Mg Tab, 750 MG PO QHS for MOOD Allergies Coded Allergies: Penicillins (Unverified Allergy, Unknown, unknown , 03/14/17) Patient was told allergy per mother, but not sure of reaction Richa Arreaga Mar 15, 2017 08:56
[2017-03-15] MEDS: **PENDING PPD ENTRY XX SCH (09:00)
[2017-03-15] MEDS ORDERED: MUPIROCIN 2% OINT 22 GM TUBE TOP PRN (09:00)
[2017-03-15] MEDS: ARIPiprazole 10 MG TAB PO SCH (09:00)
[2017-03-15] MEDS ORDERED: TETANUS/DIPHTHERIA TOX ADSORB ADULT 0.5ML SYR/VIAL (90714) IM ONE (09:00)
[2017-03-15] MEDS: LORazepam 1 MG TAB PO SCH ×2 (09:00→21:33)
[2017-03-15] MEDS ORDERED: **PENDING PPD ENTRY XX SCH (09:00)
[2017-03-15] MEDS ORDERED: TUBERCULIN PPD 5 UNITS/0.1 ML ID ONE (14:30)
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
[2017-03-15] MEDS: DIVALPROEX 500 MG TAB PO SCH ×2 (15:40→21:34)
[2017-03-15] MEDS ORDERED: TUBERCULIN PPD 5 UNITS/0.1 ML ID SCH (16:30)
--- NOTE | 2017-03-15 17:05 | ECGEPIP ---
Stationary ECG Study [facility] Test Date: 2017-03-15 Pat Name: THERESA WILLETT Department: Room: [place] [address] Gender: M General Teller: DONTRELL : 1990 Requested By: Richa Arreaga Order Number: [id number] Reading MD: Cecilia Sutton Measurements Intervals [place] Rate: 69 P: 71 NC: 165 QRS: 81 QRSD: 98 T: 68 QT: 366 QTc: 394 Interpretive Statements SINUS RHYTHM WITH SINUS ARRHYTHMIA POSSIBLE RIGHT VENTRICULAR CONDUCTION DELAY EARLY REPOLARIZATION CHANGES STABLE C/W 11/17/16 Electronically Signed On 03-15-2017 17:04:55 EDT by Cecilia Sutton
[2017-03-15 18:00] VITALS: BP 113/55
[2017-03-15] MEDS: NICOTINE 21MG/24HR 1 EA TRANSDERMAL TD SCH (18:04)
[2017-03-15] MEDS: QUEtiapine FUMARATE 50 MG TAB PO SCH (21:33)
[2017-03-16 06:48] VITALS: BP 107/57
[2017-03-16 08:31] LABS: MEAN CORPUSCULAR HEMOGLOBIN 32.1 pg (27.0-33.0); MEAN CORPUSCULAR VOLUME 94.6 fl (80.0-96.0); RED CELL DISTRIBUTION WIDTH 12.5 % (11.5-14.5); WHITE BLOOD COUNT 6.9 10^3/uL (4.0-10.0)
[2017-03-16] MEDS: DIVALPROEX 500 MG TAB PO SCH ×2 (08:41→21:02)
[2017-03-16] MEDS: LORazepam 1 MG TAB PO SCH ×2 (08:42→21:02)
[2017-03-16] MEDS: NICOTINE 21MG/24HR 1 EA TRANSDERMAL TD SCH (08:43)
[2017-03-16] MEDS: **PENDING PPD ENTRY XX SCH (09:00)
[2017-03-16] MEDS: LORazepam 1 MG TAB PO PRN ×2 (12:09→18:08)
--- NOTE | 2017-03-16 13:21 | MHIPNPDOC ---
[facility] Progress Note Progress Note DATE OF SERVICE: 03/16/17 HISTORY: . Patient is a 26-year-old male, that has history of bipolar disorder versus schizoaffective disorder, depressed type. Patient was admitted with worsening symptoms of depression and ideas to kill himself. Patient cut his arm carving the word "loser" in his left forearm. When asked about suicidal ideas, denied wanting to hurt himself now, and denied today wants to . When talking about superintendent terminal care in order to address her depressive symptoms and suicidal ideas said that he wants to go back home to see his stepchildren and continue going to school. Denied any side effects of depakote. VITAL SIGNS: See below. NEW TEST RESULTS: . CURRENT MEDICATIONS: See below. MENTAL STATUS EXAMINATION: General appearance: Patient is a -year old male, who is . 26 years old male sitting wearing casual clothes, somewhat cooperative, irritable, looks stated age, left arm with superficial lacerations as he carved in his skin the word loser Speech: . Fluent and coherent Thought processes: . mostly linear Thought content: . Denied suicidal or homicidal ideas, but has passive wishes. No delusions elicited. No perceptual disturbances Abstract reasoning and computation: . Adequate Description of associations: . No loose associations Description of abnormal or psychotic thoughts: no Psychosis Judgment: . Poor Insight: . Limited Orientation: . Oriented x 3 Recent and remote memory: . Intact Attention span and concentration: . Diminished. Concentration Fund of knowledge: . Average Mood: "ok" affect: constricted DIAGNOSES: 1. .Bipolar disorder, most recent episode depressed. Rule out substance-induced mood disorder 2. . Cannabis abuse versus dependence 2. . 3. . ASSESSMENT: 26 years old male that was admitted with worsening symptoms of depression and suicidal ideas. Patient cut himself yesterday and wanted to hurt himself by cutting when brought to the emergency room. He was aggressive and agitated, had to be restrained and chemically sedated. Patient continues to endorse passive ideas of self-harm. He wishes to be and is reluctant to try any other medications than the Depakote as he thinks is the only medication that worked for him. However, he cannot guarantee that he will not try to kill himself when out of the hospital. He denied today having ideas of self harm , no side effects of depakote and is not interested in log term care treatment . MANAGEMENT PLAN: . Continue depakote 500 mg bid, levels Tuesday morning social work for discharge plan family meeting TIME SPENT: [25] minutes. Vital Signs Vital Signs Date Time Temp Pulse Resp B/P (MAP) Pulse Ox O2 Delivery O2 Flow Rate FiO2 03/16/17 06:48 98.4 62 16 107/57 (74) 03/15/17 08:32 98 Room Air Laboratory Data CBC/BMP Laboratory Tests 03/16/17 08:02 Red Blood Count 4.45, Mean Corpuscular Volume 94.6, Mean Corpuscular Hemoglobin 32.1, Mean Corpuscular Hemoglobin Concent 34.0, Red Cell Distribution Width 12.5 Current Medications Current Medications Acetaminophen (Tylenol Tab) 650 mg Q6HP PRN PO HEADACHE or DISCOMFORT Last administered on 03/15/17 17:56; Start 03/14/17 at 21:30; Stop 04/13/17 at 21: 29 Al Hydrox/Mg Hydrox/Simethicone (Mylanta) 30 ml Q4HP PRN PO HEARTBURN/ INDIGESTION; Start 03/14/17 at 21:30; Stop 04/13/17 at 21:29 Aripiprazole (AbiLIFY) 5 mg BID PO ; Start 03/14/17 at 21:00; Stop 03/15/17 at 14:28; Status DC Diphenhydramine HCl (Benadryl) 50 mg TIDP PRN PO EXTRA PYRAMIDAL SIDE EFFECTS; Start 03/15/17 at 05:00; Stop 04/14/17 at 04:59 Divalproex Sodium (Depakote) 500 mg BID PO Last administered on 03/16/17 08: 41; Start 03/15/17 at 09:00; Stop 04/14/17 at 08:59 Haloperidol (Haldol) 10 mg QIDP PRN PO AGGITATION; Start 03/15/17 at 05:00; Stop 04/14/17 at 04:59 Home Med (Med Rec Complete!) ASDIRECTED XX ; Start 03/14/17 at 21:30; Stop 03/14/17 at 21:30; Status DC Lorazepam (Ativan) 1 mg BID PO Last administered on 03/16/17 08:42; Start at 09:00; Stop 03/22/17 at 08:59 Lorazepam (Ativan) 1 mg QIDP PRN PO ANXIETY Last administered on 03/16/17 12: 09; Start 03/15/17 at 05:00; Stop 03/22/17 at 04:59 Magnesium Hydroxide (Milk Of Magnesia) 30 ml DAILYPRN PRN PO CONSTIPATION; Start 03/14/17 at 21:30; Stop 04/13/17 at 21:29 Mupirocin (Bactroban 2% Ointment) 1 dose BID PRN TOP REDNESS/IRRITATION; Start 03/15/17 at 09:00; Stop 04/14/17 at 08:59 Nicotine (Nicoderm Cq 21mg) 1 patch DAILY TD Last administered on 03/16/17 08 :43; Start 03/15/17 at 09:00; Stop 04/14/17 at 08:59 Non-Formulary Medication ( See Comment Field Below ) SEE COMMENTS SECTION 1T @10 XX ; Start 03/17/17 at 10:00; Stop 03/17/17 at 10:00; Status DC Non-Formulary Medication ( See Comment Field Below ) SEE LABEL COMMENTS DAILY XX ; Start 03/15/17 at 09:00; Stop 04/14/17 at 08:59 Non-Formulary Medication ( See Comment Field Below ) SEE LABEL COMMENTS DAILY XX ; Start 03/15/17 at 09:00; Stop 04/14/17 at 08:59; Status Cancel Quetiapine Fumarate (SEROquel) 150 mg QHS PO Last administered on 03/15/17 21 :33; Start 03/15/17 at 21:00; Stop 04/14/17 at 20:59 Tuberculin PPD (Aplisol, Ppd) 5 units ASDIRECTED ID ; Start 03/15/17 at 16:30; Stop 04/14/17 at 16:29 Allergies Coded Allergies: Penicillins (Unverified Allergy, Unknown, unknown , 03/14/17) Patient was told allergy per mother, but not sure of reaction ELIZABETH GIBBONS MD Mar 16, 2017 12:43
[2017-03-16] MEDS: HALOPERIDOL 10 MG TAB PO PRN (17:56)
[2017-03-16 18:00] VITALS: BP 110/72
[2017-03-16] MEDS: QUEtiapine FUMARATE 50 MG TAB PO SCH (21:03)
[2017-03-17 06:31] VITALS: BP 97/56
[2017-03-17] MEDS ORDERED: PPD DOCUMENTATION ENTRY MISC XX SCH (10:00)
[2017-03-17] MEDS: DIVALPROEX 500 MG TAB PO SCH ×2 (10:03→21:00)
[2017-03-17] MEDS: LORazepam 1 MG TAB PO SCH ×2 (10:03→21:00)
[2017-03-17] MEDS: NICOTINE 21MG/24HR 1 EA TRANSDERMAL TD SCH (10:04)
[2017-03-17] MEDS ORDERED: TUBERCULIN PPD 5 UNITS/0.1 ML ID ONE (12:00)
[2017-03-17] MEDS: LORazepam 1 MG TAB PO PRN (12:04)
--- NOTE | 2017-03-17 12:52 | MHIPNPDOC ---
[facility] Progress Note Progress Note DATE OF SERVICE: 03/17/17 HISTORY: . Patient is a 26-year-old male, that has history of bipolar disorder versus schizoaffective disorder, depressed type. Patient was admitted with worsening symptoms of depression and ideas to kill himself. Patient cut his arm carving the word "loser" in his left forearm. When asked about suicidal ideas, he said to SW that he will try to kill himself after discharge from the hospital. He was very upset and was agitated as he wants to go home and not go to a exterminator helper treatment facility. He was not able to say that he will not hurt self at home. Denied any side effects of depakote. VITAL SIGNS: See below. NEW TEST RESULTS: . CURRENT MEDICATIONS: See below. MENTAL STATUS EXAMINATION: General appearance: Patient is a -year old male, who is . 26 years old male sitting wearing casual clothes, somewhat cooperative, irritable, looks stated age, left arm with superficial lacerations as he carved in his skin the word loser Speech: . Fluent and coherent Thought processes: . mostly linear Thought content: . Denied suicidal or homicidal ideas, but has passive wishes. No delusions elicited. No perceptual disturbances Abstract reasoning and computation: . Adequate Description of associations: . No loose associations Description of abnormal or psychotic thoughts: no Psychosis Judgment: . Poor Insight: . Limited Orientation: . Oriented x 3 Recent and remote memory: . Intact Attention span and concentration: . Diminished. Concentration Fund of knowledge: . Average Mood: "ok" affect: irritable DIAGNOSES: 1. .Bipolar disorder, most recent episode depressed. Rule out substance-induced mood disorder 2. . Cannabis abuse versus dependence 2. . 3. . ASSESSMENT: 26 years old male that was admitted with worsening symptoms of depression and suicidal ideas. Patient cut himself yesterday and wanted to hurt himself by cutting when brought to the emergency room. He was aggressive and agitated, had to be restrained and chemically sedated. Patient continues to endorse passive ideas of self-harm. He wishes to be and is reluctant to try any other medications than the Depakote as he thinks is the only medication that worked for him. However, he cannot guarantee that he will not try to kill himself when out of the hospital , no side effects of depakote and is not interested in log term care treatment . MANAGEMENT PLAN: . Continue depakote 500 mg bid, levels Tuesday morning social work for discharge plan to exterminator helper care, 2 PC legal status family meeting TIME SPENT: [25] minutes. Vital Signs Vital Signs Date Time Temp Pulse Resp B/P (MAP) Pulse Ox O2 Delivery O2 Flow Rate FiO2 03/17/17 06:31 97.4 53 16 97/56 (70) 03/15/17 08:32 98 Room Air Current Medications Current Medications Acetaminophen (Tylenol Tab) 650 mg Q6HP PRN PO HEADACHE or DISCOMFORT Last administered on 03/15/17 17:56; Start 03/14/17 at 21:30; Stop 04/13/17 at 21: 29 Al Hydrox/Mg Hydrox/Simethicone (Mylanta) 30 ml Q4HP PRN PO HEARTBURN/ INDIGESTION; Start 03/14/17 at 21:30; Stop 04/13/17 at 21:29 Aripiprazole (AbiLIFY) 5 mg BID PO ; Start 03/14/17 at 21:00; Stop 03/15/17 at 14:28; Status DC Diphenhydramine HCl (Benadryl) 50 mg TIDP PRN PO EXTRA PYRAMIDAL SIDE EFFECTS; Start 03/15/17 at 05:00; Stop 04/14/17 at 04:59 Divalproex Sodium (Depakote) 500 mg BID PO Last administered on 03/17/17 10: 03; Start 03/15/17 at 09:00; Stop 04/14/17 at 08:59 Haloperidol (Haldol) 10 mg QIDP PRN PO AGGITATION Last administered on 17:56; Start 03/15/17 at 05:00; Stop 04/14/17 at 04:59 Home Med (Med Rec Complete!) ASDIRECTED XX ; Start 03/14/17 at 21:30; Stop 03/14/17 at 21:30; Status DC Lorazepam (Ativan) 1 mg BID PO Last administered on 03/17/17 10:03; Start at 09:00; Stop 03/22/17 at 08:59 Lorazepam (Ativan) 1 mg QIDP PRN PO ANXIETY Last administered on 03/17/17 12: 04; Start 03/15/17 at 05:00; Stop 03/22/17 at 04:59 Magnesium Hydroxide (Milk Of Magnesia) 30 ml DAILYPRN PRN PO CONSTIPATION; Start 03/14/17 at 21:30; Stop 04/13/17 at 21:29 Mupirocin (Bactroban 2% Ointment) 1 dose BID PRN TOP REDNESS/IRRITATION; Start 03/15/17 at 09:00; Stop 04/14/17 at 08:59 Nicotine (Nicoderm Cq 21mg) 1 patch DAILY TD Last administered on 03/17/17t 10 :04; Start 03/15/17 at 09:00; Stop 04/14/17 at 08:59 Non-Formulary Medication ( See Comment Field Below ) SEE COMMENTS SECTION 1T @10 XX ; Start 03/17/17 at 10:00; Stop 03/17/17 at 10:00; Status DC Non-Formulary Medication ( See Comment Field Below ) SEE LABEL COMMENTS DAILY XX ; Start 03/15/17 at 09:00; Stop 03/17/17 at 11:19; Status DC Non-Formulary Medication ( See Comment Field Below ) SEE LABEL COMMENTS DAILY XX ; Start 03/15/17 at 09:00; Stop 04/14/17 at 08:59; Status Cancel Quetiapine Fumarate (SEROquel) 150 mg QHS PO Last administered on 03/16/17t 21 :03; Start 03/15/17 at 21:00; Stop 04/14/17 at 20:59 Tuberculin PPD (Aplisol, Ppd) 5 units ASDIRECTED ID ; Start 03/15/17 at 16:30; Stop 03/17/17 at 11:22; Status DC Allergies Coded Allergies: Penicillins (Unverified Allergy, Unknown, unknown , 03/14/17) Patient was told allergy per mother, but not sure of reaction ELIZABETH GIBBONS MD Mar 17, 2017 12:52
[2017-03-17 18:39] VITALS: BP 114/69
[2017-03-17] MEDS: QUEtiapine FUMARATE 50 MG TAB PO SCH (21:00)
[2017-03-18 06:53] VITALS: BP 109/52
[2017-03-18] MEDS: NICOTINE 21MG/24HR 1 EA TRANSDERMAL TD SCH (09:02)
[2017-03-18] MEDS: DIVALPROEX 500 MG TAB PO SCH ×2 (09:02→21:55)
[2017-03-18] MEDS: LORazepam 1 MG TAB PO SCH (09:02)
[2017-03-18] MEDS: HALOPERIDOL 10 MG TAB PO PRN (12:04)
--- NOTE | 2017-03-18 12:08 | MHIPNPDOC ---
[facility] Progress Note Progress Note DATE OF SERVICE: 03/18/17 HISTORY: . Patient is a 26-year-old male, that has history of bipolar disorder versus schizoaffective disorder, depressed type. Patient was admitted with worsening symptoms of depression and ideas to kill himself. Patient cut his arm carving the word "loser" in his left forearm. When asked about suicidal ideas, he said to SW that he will try to kill himself after discharge from the hospital. Today he was tearful as he does not want to be in civilian jail officer facility, however he can not say that will not hurt himself . He is high risk for suicide . Denied any side effects of depakote, and is taking seroquel at night for mood regulation as he does not want to be taking an antidepressant. VITAL SIGNS: See below. NEW TEST RESULTS: . CURRENT MEDICATIONS: See below. MENTAL STATUS EXAMINATION: General appearance: Patient is a -year old male, who is . 26 years old male sitting wearing casual clothes, somewhat cooperative, irritable, looks stated age, left arm with superficial lacerations as he carved in his skin the word loser Speech: . Fluent and coherent Thought processes: . mostly linear Thought content: . Denied suicidal or homicidal ideas, but has passive wishes. No delusions elicited. No perceptual disturbances Abstract reasoning and computation: . Adequate Description of associations: . No loose associations Description of abnormal or psychotic thoughts: no Psychosis Judgment: . Poor Insight: . Limited Orientation: . Oriented x 3 Recent and remote memory: . Intact Attention span and concentration: . Diminished. Concentration Fund of knowledge: . Average Mood: "ok" affect: labile DIAGNOSES: 1. .Bipolar disorder, most recent episode depressed. Rule out substance-induced mood disorder 2. . Cannabis abuse versus dependence 2. . 3. . ASSESSMENT: 26 years old male that was admitted with worsening symptoms of depression and suicidal ideas. Patient cut himself wanted to hurt himself by cutting when brought to the emergency room. He was aggressive and agitated, had to be restrained and chemically sedated. Patient continues to endorse passive ideas of self-harm. He wishes to be and is reluctant to try any other medications than the Depakote/seroquel as he thinks is the only medication that worked for him. However, he cannot guarantee that he will not try to kill himself when out of the hospital , no side effects of depakote and is not interested in log term care treatment . Patient is high risk for suicide MANAGEMENT PLAN: . Continue depakote 500 mg bid, levels tomorrow morning , continue Seroquel 150 mg daily to titrate social work for discharge plan to civilian jail officer care, 2 PC legal status family meeting TIME SPENT: [25] minutes. Vital Signs Vital Signs Date Time Temp Pulse Resp B/P (MAP) Pulse Ox O2 Delivery O2 Flow Rate FiO2 03/18/17 06:53 97.8 57 16 109/52 (71) 03/15/17 08:32 98 Room Air Current Medications Current Medications Acetaminophen (Tylenol Tab) 650 mg Q6HP PRN PO HEADACHE or DISCOMFORT Last administered on 03/15/17 17:56; Start 03/14/17 at 21:30; Stop 04/13/17 at 21: 29 Al Hydrox/Mg Hydrox/Simethicone (Mylanta) 30 ml Q4HP PRN PO HEARTBURN/ INDIGESTION; Start 03/14/17 at 21:30; Stop 04/13/17 at 21:29 Aripiprazole (AbiLIFY) 5 mg BID PO ; Start 03/14/17 at 21:00; Stop 03/15/17 at 14:28; Status DC Diphenhydramine HCl (Benadryl) 50 mg TIDP PRN PO EXTRA PYRAMIDAL SIDE EFFECTS; Start 03/15/17 at 05:00; Stop 04/14/17 at 04:59 Divalproex Sodium (Depakote) 500 mg BID PO Last administered on 03/18/17 09: 02; Start 03/15/17 at 09:00; Stop 04/14/17 at 08:59 Haloperidol (Haldol) 10 mg QIDP PRN PO AGGITATION Last administered on 17:56; Start 03/15/17 at 05:00; Stop 04/14/17 at 04:59 Home Med (Med Rec Complete!) ASDIRECTED XX ; Start 03/14/17 at 21:30; Stop 03/14/17 at 21:30; Status DC Lorazepam (Ativan) 1 mg BID PO Last administered on 03/18/17 09:02; Start at 09:00; Stop 03/22/17 at 08:59 Lorazepam (Ativan) 1 mg QIDP PRN PO ANXIETY Last administered on 03/17/17 12: 04; Start 03/15/17 at 05:00; Stop 03/22/17 at 04:59 Magnesium Hydroxide (Milk Of Magnesia) 30 ml DAILYPRN PRN PO CONSTIPATION; Start 03/14/17 at 21:30; Stop 04/13/17 at 21:29 Mupirocin (Bactroban 2% Ointment) 1 dose BID PRN TOP REDNESS/IRRITATION; Start 03/15/17 at 09:00; Stop 04/14/17 at 08:59 Nicotine (Nicoderm Cq 21mg) 1 patch DAILY TD Last administered on 03/18/17 09 :02; Start 03/15/17 at 09:00; Stop 04/14/17 at 08:59 Non-Formulary Medication ( See Comment Field Below ) SEE COMMENTS SECTION 1T @10 XX ; Start 03/17/17 at 10:00; Stop 03/17/17 at 10:00; Status DC Non-Formulary Medication ( See Comment Field Below ) SEE LABEL COMMENTS DAILY XX ; Start 03/15/17 at 09:00; Stop 03/17/17 at 11:19; Status DC Non-Formulary Medication ( See Comment Field Below ) SEE LABEL COMMENTS DAILY XX ; Start 03/15/17 at 09:00; Stop 04/14/17 at 08:59; Status Cancel Quetiapine Fumarate (SEROquel) 150 mg QHS PO Last administered on 03/17/17 21 :00; Start 03/15/17 at 21:00; Stop 04/14/17 at 20:59 Tuberculin PPD (Aplisol, Ppd) 5 units ASDIRECTED ID ; Start 03/15/17 at 16:30; Stop 03/17/17 at 11:22; Status DC Allergies Coded Allergies: Penicillins (Unverified Allergy, Unknown, unknown , 03/14/17) Patient was told allergy per mother, but not sure of reaction ELIZABETH GIBBONS MD Mar 18, 2017 12:08
[2017-03-18 18:00] VITALS: BP 119/72
[2017-03-18] MEDS: LORazepam 1 MG TAB PO PRN (19:14)
[2017-03-18] MEDS: QUEtiapine FUMARATE 50 MG TAB PO SCH (21:55)
[2017-03-19 06:52] VITALS: BP 130/69
[2017-03-19] MEDS: DIVALPROEX 500 MG TAB PO SCH ×2 (08:47→21:32)
[2017-03-19] MEDS: NICOTINE 21MG/24HR 1 EA TRANSDERMAL TD SCH (08:47)
[2017-03-19] MEDS ORDERED: PPD DOCUMENTATION ENTRY MISC XX ONE (12:00)
[2017-03-19] MEDS: HALOPERIDOL 10 MG TAB PO PRN (14:19)
[2017-03-19] MEDS: LORazepam 1 MG TAB PO PRN (17:32)
[2017-03-19 18:00] VITALS: BP 113/67
[2017-03-19] MEDS: QUEtiapine FUMARATE 50 MG TAB PO SCH (21:32)
--- NOTE | 2017-03-19 21:56 | MHIPN ---
DATE: 03/19/2017 SUBJECTIVE: The patient today states "I'm doing better." When I asked him what he meant by better, he said "I don't want to kill myself." He is still having some depression. His mood is 4/10 with the closer to 10 as the most depressed, but he is says he is not feeling hopeless or helpless anymore. He says he slept good. MENTAL STATUS EXAMINATION: The patient is alert and oriented times three. Eye contact is good. Psychomotor activity is normal. There is no formal thought disorder noted. He says his mood is "better." Affect full range and appropriate. He is not psychotic, suicidal, or homicidal. Concentration is fair. Memory intact. Insight and judgment is fair. DIAGNOSES: 1. Bipolar disorder, most recent episode depressed. 2. Cannabis use disorder. TREATMENT PLAN: At this point, we will continue to monitor the patient for continued stabilization of his mood and continued resolution of suicidal ideation. We will titrate medications as indicated. MICKI
[2017-03-20 06:49] VITALS: BP 104/57
[2017-03-20] MEDS: DIVALPROEX 500 MG TAB PO SCH ×2 (08:37→21:26)
[2017-03-20] MEDS: NICOTINE 21MG/24HR 1 EA TRANSDERMAL TD SCH (08:37)
[2017-03-20 18:00] VITALS: BP 110/85
[2017-03-20] MEDS: HALOPERIDOL 10 MG TAB PO PRN (19:54)
[2017-03-20] MEDS: QUEtiapine FUMARATE 50 MG TAB PO SCH (21:27)
[2017-03-21 06:33] VITALS: BP 112/58
[2017-03-21] MEDS: DIVALPROEX 500 MG TAB PO SCH ×2 (09:09→21:28)
[2017-03-21] MEDS: NICOTINE 21MG/24HR 1 EA TRANSDERMAL TD SCH (09:10)
[2017-03-21] MEDS ORDERED: QUEtiapine FUMARATE 50 MG TAB PO PRN (12:30)
[2017-03-21 18:00] VITALS: BP 108/60
--- NOTE | 2017-03-21 19:02 | IPN ---
DATE: 03/21/2017 HISTORY: A 26-year-old male with history of bipolar disorder versus schizoaffective disorder, depressive type admitted with symptoms of depression and suicidal ideation. At admission, the patient cut his arm and carved "loser" on his left forearm. His behavior is described as agitated and being physically aggressive with staff at the emergency department. He was making statements such as, "life is not worth living." The patient stated that one day he will end up killing himself. The patient has a history of chronic cannabis use. During the interview today, the patient reports improvement. He feels less depressed and suicidal. Denies side effect from the medication. He is no longer showing psychomotor retardation and is interacting better with other patients and staff. The patient reports that he has been using Haldol and Ativan one time a day for anxiety. MEDICATIONS: - Seroquel 150 mg by mouth at bedtime - Depakote 500 mg by mouth twice a day MENTAL STATUS EXAMINATION: The patient is dressed in [facility]. The patient is cooperative during the interview. He has fair eye contact. Speech is poor. Mood is depressed and anxious but improving. Affect is restricted. No delusions or hallucinations. Memory is fair. The patient is fully oriented. Associations are intact. Thinking is logical. Thought content is appropriate. The patient is able to contract for safety during the interview and denies suicidal or homicidal ideation. Insight and judgment is limited. ASSESSMENT: 1. Depression. 2. Suicidal ideation. 3. Bipolar disorder by history. 4. Marijuana abuse. PLAN: 1. Change Seroquel to 100 mg by mouth at bedtime plus 50 mg as needed for insomnia. 2. Continue with Depakote 500 mg by mouth twice a day. 3. Continue close observation. 4. Continue medication management, individual and group therapy.
[2017-03-21] MEDS ORDERED: QUEtiapine FUMARATE 100 MG TAB PO SCH (21:00)
[2017-03-22 06:38] VITALS: BP 99/56
[2017-03-22] MEDS: NICOTINE 21MG/24HR 1 EA TRANSDERMAL TD SCH (08:13)
[2017-03-22] MEDS: DIVALPROEX 500 MG TAB PO SCH (08:13)
[2017-03-22] MEDS ORDERED: QUET1TAB8 PO (09:47)
[2017-03-22] MEDS ORDERED: DEPA1TAB3 PO (09:47)
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
== END 2017-03-22 10:40 | disposition home or self-care (01) | DRG 885 ==
LOC: M ED 18:14 → M ED INP 21:22 → M PSY 03-15 08:12
PROVIDERS: ADMIT Psychiatry & Neurology Psychiatry; ATTEND Psychiatry & Neurology Psychiatry
DX: F31.9 Bipolar disorder, unspecified (principal); R45.851 Suicidal ideations; F19.94 Other psychoactive substance use, unspecified with psychoactive substance-induced mood disorder; F12.10 Cannabis abuse, uncomplicated; F17.210 Nicotine dependence, cigarettes, uncomplicated; S51.812A Laceration without foreign body of left forearm, initial encounter; Z91.14 Patient's other noncompliance with medication regimen; Z91.5 Personal history of self-harm; X78.1XXA Intentional self-harm by knife, initial encounter; Y92.9 Unspecified place or not applicable; Y93.9 Activity, unspecified; Y99.9 Unspecified external cause status

== ENCOUNTER 2017-03-22 18:15 | Emergency (ER) | payer OTHER, SELFPAY ==
[~2017-03-22] VITALS: Ht 170.2 cm; Wt 59.1 kg
[~2017-03-22 18:15] MED LIST changes: +DEPA1TAB3 PO
[2017-03-22] MEDS ORDERED: ONDANSETRON 4MG/2ML VIAL (J2405) IV ONE ×2 (19:00→20:00)
[2017-03-22] MEDS ORDERED: MORPHINE 4 MG/ML 1ML SYRINGE IV ONE (19:00)
--- NOTE | 2017-03-22 19:39 | REP ---
LEFT SHOULDER SERIES: Three views of the left shoulder are performed. There is anterior dislocation of the humeral head of the glenoid fossa. No associated fracture is seen of the visualized osseous structures. Signed by Garry Neumann MD 03/22/2017 08:05 P
[2017-03-22] MEDS ORDERED: NS 1,000 ML IV SCH (19:56)
[2017-03-22] MEDS ORDERED: PROPOFOL 200 MG/20 ML VIAL IV PRN ×2 (20:00→20:45)
[2017-03-22] MEDS ORDERED: KETAMINE HCL 200 MG/20 ML VIAL IV ONE (20:00)
[2017-03-22 21:48] VITALS: BP 133/94
--- NOTE | 2017-03-23 01:42 | REP ---
Clinical: Post reduction. Technique: Portable neutral view of the left shoulder. Findings: Satisfactory glenohumeral joint reduction. No obvious acute fracture. Impression: Satisfactory reduction. No fracture. Signed by Tico Otero MD 03/23/2017 01:33 A
== END 2017-03-22 22:28 | disposition home or self-care (01) ==
LOC: M ED 18:15
DX: S43.002A Unspecified subluxation of left shoulder joint, initial encounter (principal); W01.0XXA Fall on same level from slipping, tripping and stumbling without subsequent striking against object, initial encounter; Y92.830 Public park as the place of occurrence of the external cause; Y93.89 Activity, other specified; Y99.8 Other external cause status; F33.9 Major depressive disorder, recurrent, unspecified; F41.9 Anxiety disorder, unspecified; Z79.899 Other long term (current) drug therapy; Z88.0 Allergy status to penicillin; F17.210 Nicotine dependence, cigarettes, uncomplicated
CPT/HCPCS: 23650; 73020; 73030; 93041; 94760; 96374; 96375; 96376; 99291; J2405

== ENCOUNTER → 2017-05-18 | Outpatient (CLI) | payer OTHER ==
[~2017-05-18] MED LIST changes: +CONRAY-43 43% 50ML VIAL (Q9960) As Ordered ONE; +PROHANCE 279.3MG/ML 5ML VIAL (A9576) As Ordered ONE
--- NOTE | 2017-05-18 09:03 | REP ---
Procedure: Left shoulder arthrogram The procedure was performed under the direct supervision of Dr. Neumann. History: Left shoulder pain The benefits and risks including but not limited to pain, infection, bleeding and anaphylaxis were explained to the patient and informed consent was obtained. Technique: The left glenohumeral joint space was localized using fluoroscopic guidance. The skin was prepped and draped in a sterile fashion. 1% lidocaine was used as a local anesthetic. Using fluoroscopic guidance a 22 gauge spinal needle was inserted and advanced into the joint. 0.5 ml of Conray 43 was injected to verify placement. 11 ml of a solution containing 20 ml of sterile saline and 0.15 ml of ProHance was injected into the joint. The needle was removed and the patient was taken to MRI for postprocedural imaging. The the patient tolerated the procedure well and there were no immediate complications. Less than 6 seconds of fluoro time was utilized for this procedure. Reviewed by EMETERIO Evans 05/18/2017 08:35 ASigned by Garry Neumann MD 05/18/2017 08:52 A
--- NOTE | 2017-05-19 08:00 | REP ---
MR ARTHROGRAM LEFT SHOULDER: TECHNIQUE: Axial T2 fat sat, coronal oblique T1, T2 fat sat, post arthrogram axial T1 fat sat, proton density, coronal oblique T1 fat sat, T2 sat, sagittal oblique T2 fat sat, ABER T1 fat sat. Supraspinatus tendon demonstrates ill-defined high signal on T2-weighted images diffusely compatible with tendinopathy/tendonitis. No rotator cuff tendon tear is seen. There is mild downward sloping of the acromion. No significant hypertrophic degenerative changes are seen at the acromioclavicular joint. Acromion is type I. Biceps tendon is within the bicipital groove with no evidence of tendosynovitis. There is a Hill-Sachs deformity of the superolateral humeral head with underlying bone marrow edema. Adjacent deltoid muscle demonstrates no abnormal signal. The biceps labral complex is intact. No SLAP tear is seen. There is no other evidence of a labral tear. No other abnormal marrow signal is seen. There is no Bankart lesion. There is a normal amount of joint fluid. There is no paralabral cyst. IMPRESSION: Supraspinatus tendinopathy/tendonitis without evidence of a rotator cuff tendon tear. There is a Hill-Sachs deformity of the superolateral humeral head somewhat posteriorly with underlying bone marrow edema in the humeral head. No evidence of a labral tear or Bankart lesion. Signed by Garry Neumann MD 05/19/2017 09:06 A
== END ==
LOC: M RADPRO 07:27
PROVIDERS: ATTEND Orthopaedic Surgery
DX: S43.015A Anterior dislocation of left humerus, initial encounter (principal); M65.812 Other synovitis and tenosynovitis, left shoulder; X58.XXXA Exposure to other specified factors, initial encounter; Y93.9 Activity, unspecified; Y92.9 Unspecified place or not applicable; Y99.8 Other external cause status; Z88.0 Allergy status to penicillin
CPT/HCPCS: 23350; 73223; 77002; A9576; Q9960

== ENCOUNTER → 2018-08-05 | Outpatient (CLI) | payer OTHER ==
[~2018-08-05] MED LIST changes: -CONRAY-43 43% 50ML VIAL (Q9960) As Ordered ONE; -PROHANCE 279.3MG/ML 5ML VIAL (A9576) As Ordered ONE
[2018-08-05 18:06] LABS: BASO # 0.1 10^3/uL (0.0-0.2); BASO % 0.6 % (0.0-1.0); EOS # 0.2 10^3/uL (0.0-0.50); HEMATOCRIT 46.2 % (42.0-52.0); HEMOGLOBIN 15.6 g/dl (13.5-17.5); LYMPH # 1.1 10^3/uL (1.5-6.5); MEAN CORPUSCULAR HEMOGLOBIN 31.8 pg (27.0-33.0); MEAN CORPUSCULAR HGB CONC 33.8 g/dl (32.0-36.5); MEAN CORPUSCULAR VOLUME 94.1 fl (80.0-96.0); MONO # 0.7 10^3/uL (0.0-0.8); MONO % 7.4 % (0.0-5.0); NEUTROPHILS # 7.8 10^3/uL (1.8-7.7); NEUTROPHILS % 78.5 % (36.0-66.0); PLATELET COUNT, AUTOMATED 265 10^3/uL (150-450); RED BLOOD COUNT 4.91 10^6/uL (4.30-6.10)
[2018-08-05 18:19] LABS: ALBUMIN 4.2 GM/DL (3.2-5.2); ALT/SGPT 32 U/L (12-78); BILIRUBIN,TOTAL 0.3 MG/DL (0.2-1.0); BLOOD UREA NITROGEN 16 MG/DL (7-18); CALCIUM LEVEL 8.6 MG/DL (8.5-10.1); CARBON DIOXIDE LEVEL 24 MEQ/L (21-32); CHLORIDE LEVEL 107 MEQ/L (98-107); CREATININE FOR GFR 0.82 MG/DL (0.70-1.30); GLOMERULAR FILTRATION RATE > 60.0 (>60); GLUCOSE, FASTING 74 MG/DL (70-100); LIPASE 87 U/L (73-393); POTASSIUM SERUM 4.1 MEQ/L (3.5-5.1); SODIUM LEVEL 140 MEQ/L (136-145); TOTAL PROTEIN 7.1 GM/DL (6.4-8.2)
== END ==
LOC: M WUC 15:38
PROVIDERS: ATTEND Physician Assistant
DX: R11.10 Vomiting, unspecified (principal)

== ENCOUNTER 2018-09-29 14:02 | Inpatient (IN) | payer OTHER ==
[~2018-09-29] VITALS: Ht 170.2 cm; Wt 57.3 kg
[~2018-09-29 14:02] MED LIST changes: -/DIVA50TA PO; -/QUET10TA PO; -/QUET25TA PO; +SERO1TAB PO; +SERO1TAB3 PO
[2018-09-29 14:30] LABS: HEMATOCRIT 43.7 % (42.0-52.0); HEMOGLOBIN 14.9 g/dl (13.5-17.5); MEAN CORPUSCULAR HEMOGLOBIN 31.3 pg (27.0-33.0); MEAN CORPUSCULAR HGB CONC 34.1 g/dl (32.0-36.5); MEAN CORPUSCULAR VOLUME 91.8 fl (80.0-96.0); PLATELET COUNT, AUTOMATED 322 10^3/uL (150-450); RED BLOOD COUNT 4.76 10^6/uL (4.30-6.10); WHITE BLOOD COUNT 9.3 10^3/uL (4.0-10.0)
[2018-09-29 15:07] LABS: ACETAMINOPHEN LEVEL < 2.0 UG/ML (10.0-30.0); ALBUMIN 4.3 GM/DL (3.2-5.2); ALT/SGPT 24 U/L (12-78); BILIRUBIN,DIRECT < 0.1 MG/DL (0.0-0.2); BILIRUBIN,TOTAL 0.2 MG/DL (0.2-1.0); BLOOD UREA NITROGEN 11 MG/DL (7-18); CALCIUM LEVEL 9.1 MG/DL (8.5-10.1); CARBON DIOXIDE LEVEL 27 MEQ/L (21-32); CHLORIDE LEVEL 108 MEQ/L (98-107); CREATININE FOR GFR 0.93 MG/DL (0.70-1.30); ETHYL ALCOHOL (ETHANOL) < 0.003 % (0.000-0.010); GLOMERULAR FILTRATION RATE > 60.0 (>60); GLUCOSE, FASTING 107 MG/DL (70-100); SALICYLATE LEVEL 4.1 MG/DL (5.0-30.0); SODIUM LEVEL 141 MEQ/L (136-145); THYROID STIMULATING HORMONE 0.889 uIU/ML (0.358-3.740); TOTAL PROTEIN 7.5 GM/DL (6.4-8.2)
[2018-09-29 16:03] LABS: AMPHETAMINES LEVEL URINE NEGATIVE (NEGATIVE); BARBITURATES URINE NEGATIVE (NEGATIVE); BENZODIAZEPINES URINE NEGATIVE (NEGATIVE); CANNABINOIDS URINE POSITIVE (NEGATIVE); COCAINE METABOLITE URINE NEGATIVE (NEGATIVE); METHADONE URINE NEGATIVE (NEGATIVE); OPIATES URINE NEGATIVE (NEGATIVE); PHENCYCLIDINE URINE NEGATIVE (NEGATIVE)
[2018-09-29] MEDS ORDERED: ACETAMINOPHEN TAB 650MG DOSE (2X325MG) PO PRN (18:00)
[2018-09-29] MEDS ORDERED: MAALOX 30 ML SUSP *UDC PO PRN (18:00)
[2018-09-29] MEDS ORDERED: MOM 30ML SUSPENSION UDC PO PRN (18:00)
[2018-09-29] MEDS ORDERED: NICOTINE 14 MG/24 HR TRANSDERMAL TD ONE (20:30)
[2018-09-29 20:44] VITALS: BP 127/79
[2018-09-29] MEDS: traZODone 50 MG TAB PO PRN (23:15)
[2018-09-30 06:10] VITALS: BP 127/59
[2018-09-30] MEDS: NICOTINE 21MG/24HR 1 EA TRANSDERMAL TD SCH ×2 (09:00→10:21)
[2018-09-30 18:10] VITALS: BP 130/70
[2018-09-30] MEDS ORDERED: QUEtiapine FUMARATE 50 MG TAB PO SCH (21:00)
[2018-09-30] MEDS: traZODone 50 MG TAB PO PRN (23:21)
[2018-09-30] MEDS: DIVALPROEX 500 MG TAB PO SCH (23:21)
[2018-10-01 06:23] VITALS: BP 102/59
[2018-10-01] MEDS: DIVALPROEX 500 MG TAB PO SCH ×2 (09:25→22:25)
[2018-10-01] MEDS: NICOTINE 21MG/24HR 1 EA TRANSDERMAL TD SCH (09:25)
--- NOTE | 2018-10-01 16:31 | MHHPE ---
DATE OF ADMISSION: 09/29/2018 DATE OF EVALUATION: 09/30/2018 HISTORY OF PRESENT ILLNESS: This is a 28-year-old male who was admitted with suicidal or wanting to cut his wrists. He is referred by the 's Administration office at [facility] ([facility] The patient stated that he has been having suicidal thoughts for the past 3 to 4 months. He states that he has been off of medications for 1 year. He does not have a psychiatrist. The patient states that he has been depressed, feeling hopeless and helpless, experiencing anhedonia and not sleeping well. I did not elicit any hypomanic or manic like symptoms of posttraumatic stress disorder (PTSD) or obsessive compulsive disorder (OCD) in this patient. PAST PSYCHIATRIC HISTORY: The patient was admitted in 2016 at [facility] inpatient mental health unit for depression and suicidal thoughts. He states that at that time he had tried to hang himself with a belt. I was able to review those records from March 2017 hospitalization. The patient has the word "loser" on his left upper forearm at that time. According to that record, he indicated that he had been on many medications, including antidepressants like Effexor, but he never felt that they helped, the only medication that ever helped him was Depakote. He described depressed, low energy, anhedonia, diminished concentration, and passive ideas of suicide. There were no symptoms of posttraumatic stress disorder (PTSD), hypomanic or manic-like symptoms. He was given a diagnosis of bipolar disorder and cannabis abuse versus rule out substance induced mood disorder. The patient, as I said, was diagnosed with bipolar disorder, but I did not see anything in that evaluation that was consistent with hypomanic or manic like symptoms. It notes that the patient had a history of bipolar disorder. The patient is very vague at this point. I am not eliciting any hypomanic or manic like symptoms at this point. FAMILY HISTORY: No psychiatric illness in the family. No history of suicides. MEDICAL HISTORY: The patient denies any medical problems. ABUSE HISTORY: Denies any physical or sexual abuse. SUBSTANCE ABUSE: The patient admits to using cannabis. REVIEW OF SYSTEMS: VITAL SIGNS: 127/59, pulse 66, respirations 14. APPEARANCE: The patient did not appear to be in any apparent distress. NEUROMUSCULAR SYSTEM: The patient's gait is normal and there are no involuntary movements. Other systems were reviewed and were found to be negative. MENTAL STATUS EXAMINATION: This is alert and oriented times three. Eye contact is fair. Psychomotor activity is normal. He is verbally spontaneous. There is no formal thought disorder noted. Mood is depressed. Affect is constricted but appropriate to mood. He is not psychotic. He is denying suicidal ideations or homicidal ideations. Concentration is fair. Insight and judgment poor. DIAGNOSES: 1. Other specified bipolar disorder. 2. Rule out substance induced mood disorder. 3. Cannabis use disorder, moderate. TREATMENT PLAN: At this point, the patient is complaining of feeling depressed. He gives a history of bipolar disorder. The patient feels that he has done the best on a combination of Depakote and Seroquel, so we will restart Depakote 500 mg twice a day and Seroquel 50 mg at night. THe plan is to discharge the patient home when stable. [facility]
[2018-10-01 18:25] VITALS: BP 113/65
[2018-10-01] MEDS ORDERED: QUEtiapine FUMARATE 100 MG TAB PO SCH (21:00)
[2018-10-01] MEDS: traZODone 50 MG TAB PO PRN (22:25)
[2018-10-01] MEDS ORDERED: traZODone 50 MG TAB PO ONE (23:30)
[2018-10-01] MEDS ORDERED: QUEtiapine FUMARATE 50 MG TAB PO ONE (23:30)
[2018-10-02 06:37] VITALS: BP 104/63
[2018-10-02] MEDS: NICOTINE 21MG/24HR 1 EA TRANSDERMAL TD SCH (09:47)
[2018-10-02] MEDS: DIVALPROEX 500 MG TAB PO SCH (09:47)
[2018-10-02] MEDS ORDERED: IBUPROFEN 600 MG TAB PO PRN (15:15)
[2018-10-02] MEDS ORDERED: PILL CRUSHER/CUTTER 1 EACH XX PRN (15:15)
[2018-10-02 18:00] VITALS: BP 133/91
--- NOTE | 2018-10-02 18:00 | MHIPNPDOC ---
[facility] Progress Note Progress Note DATE OF SERVICE: 10/02/18 HISTORY: As per Dr. Llaams: "This is a 28-year-old male who was admitted with suicidal or wanting to cut his wrists. He is referred by the 's Administration office at [facility] ([facility]). The patient stated that he has been having suicidal thoughts for the past 3 to 4 months. He states that he has been off of medications for 1 year. He does not have a psychiatrist. The patient states that he has been depressed, feeling hopeless and helpless,experiencing anhedonia and not sleeping well." VITAL SIGNS: See below. NEW TEST RESULTS: See below CURRENT MEDICATIONS: See below. MENTAL STATUS EXAMINATION: Patient is a 28-year old male, who is alert, cooperative, angry, dressed in personal clothes with fair hygiene and grooming. Speech: Is fluent, spontaneous, normal rate, rhythm, tone and volume. Language skills are good. Thought processes including: Intact. Thought content: angry thoughts, depressive thoughts, cognitive distortions, catastrophizing, generalization. Abstract reasoning, and computation: intact. Description of associations: intact. Description of abnormal or psychotic thoughts: angry thoughts. He denies SI, denies HI, denies thought delusions, denies AV hallucinations but admits that last night he felt very angry at the staf, in particular against one of the male Nurses and he felt like beating him up. Judgment: lpoor. Insight: limited. Orientation: x 4. Recent and remote memory: intact. Attention span and concentration: good. Language: Dutch, well structured. Fund of knowledge: average. Mood: Irritable, angry, sad Affect: Angry, sad, irritable DIAGNOSES: 1. Bipolar 2 disorder, mixed 2. Cluster B personality traits 3. Marihuana use disorder ASSESSMENT: The patient is extremely irate at one of the staff Nurses from last night and he is not letting go. I spent more than one hour listening to him because he leeded to blow that anger off his system. He accepted to have an increase in Depakote to 750 mgs PO BID and to start Abilify at a dose of 2.5 mgs PO BID, that will be increased accordingly and if he would not develop adverse effects to the oral formulation, he would be started on Abilify mantenna 400 mgs IM q month. He was agreeable to those changes. He reports he never did well on antidepressants. He feels very frustrated living in [facility], he feels his life is not going anywhere. He compares himself to male friends who are driving good cars, who have homes while he is washing dishes at [facility] ( he sees this as demeaning, while I tell him that all jobs are good and honorable, there's nothing wrong about washing dishes). He has an extensive history of drug abuse while he was in [place] (where he was born and raised) while living at a town close to [place], where lots of [facility] kids moved in because they were already in trouble for using or selling drugs and once they moved into his town, they organized themselves in gangs. He associated with the wrong crowd and ended up selling and using drugs. He thought he should move somewhere else if he didn't want to end up and [place] [facility], where, again, gangs and drugs abound and he ended up in the same situation. He had a girlfriend, who later on became his who made him aware of the dangers of his life and at that moment he thought joining the [employer] to stay away from drugs and trouble. He joined the [employer] and was med boarded. He has an ongoing relationship with a GF who is from this area and who is establishing a business with her family. He would love to go back to [place] but he doesn't have the means to do it. He is here only because his GF and her children (he has raised them as his children) are from this area and sometimes he misses his life when he was dealing and using drugs, He is very unhappy, very frustrated, very angry and he has not taken medications for a little bit over one year. He is at risk for suicide and of hurting others because she is angry. Hopefully with these new medications he will be stabilized. MANAGEMENT PLAN: Increase Depakote to 750 mgs PO BID and start Abilify 2.5 mgs PO BID. Increase Seroquel to 150 mgs PO QHS TIME SPENT: 60 minutes. Vital Signs Vital Signs Date Time Temp Pulse Resp B/P (MAP) Pulse Ox O2 Delivery O2 Flow Rate FiO2 10/02/18 09:02 Room Air 10/02/18 06:37 98.1 71 12 104/63 (77) 09/29/18 20:44 98 Current Medications Current Medications Acetaminophen (Tylenol Tab) 650 mg Q6HP PRN PO HEADACHE or DISCOMFORT; Start 09/29/18 at 18:00; Status Cancel Al Hydrox/Mg Hydrox/Simethicone (Mylanta) 30 ml Q4HP PRN PO HEARTBURN/INDIGESTION; Start 09/29/18 at 18:00 Aripiprazole (AbiLIFY) 2.5 mg BID PO ; Start 10/02/18 at 21:00 Divalproex Sodium (Depakote) 500 mg BID PO Last administered on 10/02/18at 09:47; Start 09/30/18 at 21:00; Stop 10/02/18 at 15:00; Status DC Divalproex Sodium (Depakote) 750 mg BID PO ; Start 10/02/18 at 21:00 Home Med (Med Rec Complete!) ASDIRECTED XX ; Start 09/29/18 at 17:15; Stop 09/29/18 at 17:15; Status DC Ibuprofen (Advil) 600 mg Q6HP PRN PO MODERATE PAIN (PS 5-7); Start 10/02/18 at 15:15 Magnesium Hydroxide (Milk Of Magnesia) 30 ml DAILYPRN PRN PO CONSTIPATION; Start 09/29/18 at 18:00 Nicotine (Nicoderm Cq 21mg) 1 patch DAILY TD Last administered on 10/02/18at 09:47; Start 09/30/18 at 09:00 Quetiapine Fumarate (SEROquel) 50 mg QHS PO Last administered on 09/30/18at 23:21; Start 09/30/18 at 21:00; Stop 10/01/18 at 13:06; Status DC Quetiapine Fumarate (SEROquel) 100 mg QHS PO Last administered on 10/01/18at 22:25; Start 10/01/18 at 21:00; Stop 10/02/18 at 15:12; Status DC Quetiapine Fumarate (SEROquel) 150 mg QHS PO ; Start 10/02/18 at 21:00 Trazodone HCl (Desyrel) 50 mg QHSP PRN PO INSOMNIA Last administered on 10/01/18at 22:25; Start 09/29/18 at 18:00; Stop 10/02/18 at 14:30; Status DC Allergies Coded Allergies: Penicillins (Verified Allergy, Unknown, 09/29/18) A-FIB/CHADSVASC A-FIB History Current/History of A-Fib/PAF?: No Current Oral Anticoagulant The: No Age/Risk Factor Scoring CHADSVASC: CHADSVASC Response (Comments) Value Age Risk Factor Age < 65 years old 0 Gender Risk Factor Male 0 Hx of CHF No 0 Hx of HTN No 0 Hx of Stroke/TIA/or VTE No 0 Hx of Diabetes No 0 Hx of Vascular Disease No 0 Total 0 Treatment Treatment ordered: NONE Reason Anticoagulant not given: Not indicated/[id number] HALEY GONZALEZ MD Oct 02, 2018 18:00
[2018-10-02] MEDS ORDERED: QUEtiapine FUMARATE 50 MG TAB PO SCH (21:00)
[2018-10-02] MEDS: DIVALPROEX 250 MG TAB PO SCH (21:30)
--- NOTE | 2018-10-02 21:32 | HPE ---
DATE OF ADMISSION: 09/29/2018 HISTORY OF PRESENT ILLNESS: Please refer to psychiatric history and evaluation for further details on this admission. This examination and history is intended for medical issues, which may need treatment, followup or consultation on this 28-year-old male. PRIMARY CARE PROVIDER: Rich Oneal ALLERGIES: PENICILLIN. SOCIAL HISTORY: He resides in [place]. He is . Employment is [email or web address]. Tobacco: He smokes one pack of cigarettes per day. ETOH is none. Recreational drug use is marijuana daily. PAST MEDICAL HISTORY: Bipolar disorder, anxiety, depression, attention deficit hyperactivity disorder (ADHD), history of suicide attempt and has attempted hanging in the past. Substance use. Self mutilation. Chronic headache. History of skull fracture as a child related to a fall. PAST SURGICAL HISTORY: Corrective surgery for intoeing as a child. Relocation of left shoulder under anesthesia. LABORATORY STUDIES: Complete blood count (CBC) was normal. Sodium was 141, potassium 4.0, chloride 108, CO2 is 27, anion gap 6, BUN 11, creatinine 0.93, non fasting glucose 107. Toxicology was positive for cannabinoids. FAMILY HISTORY: Mother, father and siblings alive and well. HOME MEDICATIONS: None. Electrocardiogram (EKG) on file from 03/15/2017 showed sinus rhythm with sinus arrhythmia. Possible biventricular conduction delay. Study consistent with 11/17/2016. REVIEW OF SYSTEMS: 11-point review of systems was done and reviewed and unremarkable. PHYSICAL EXAMINATION: GENERAL: 28-year-old cooperative male in no acute distress. Height 67 inches, weight 57.1 kg, BMI 19.7. VITAL SIGNS: Blood pressure 130/70, pulse 72, respirations 16, temperature 98.3, oxygen saturation is 98% on room air. The patient is alert and oriented times three. HEENT: Pupils are equal and reactive to light. Extraocular muscles intact. Sclerae clear. Conjunctivae normal. No facial asymmetry. Pharynx, gums and tongue pink and moist. Tongue is midline. NECK: Supple without lymphadenopathy, thyromegaly or goiter. Carotids are 2+ without bruit. CHEST: Clear to auscultation without wheeze or retraction. HEART: Regular. ABDOMEN: Benign. Bowel sounds positive. GENITOURINARY/RECTAL: Not done. EXTREMITIES: Equal strength, full range of motion. No clubbing, cyanosis, and edema. Peripheral pulses equal and palpable bilaterally. SKIN: Warm and dry. Cranial nerve II-XII grossly intact. IMPRESSION/PLAN: 1. Psychiatric plan per psychiatry. 2. Nicotine dependence, patch available. No acute medical issues.
[2018-10-03 06:35] VITALS: BP 109/59
[2018-10-03] MEDS: NICOTINE 21MG/24HR 1 EA TRANSDERMAL TD SCH (08:51)
[2018-10-03] MEDS: DIVALPROEX 250 MG TAB PO SCH ×2 (08:51→21:53)
--- NOTE | 2018-10-03 10:23 | MHIPN ---
DATE: 10/01/2018 The patient today states "I'm alright." He says, however, he is still feeling pretty depressed and he is hopeless and helpless and he says that he continues to have suicidal thoughts, but he contracts for safety while he is in the hospital and he also complains of difficulty sleeping. MENTAL STATUS EXAMINATION: The patient is alert and oriented times three. Eye contact fair. Psychomotor activity is decreased. He is verbally spontaneous. There is no formal thought disorder noted. Mood is depressed. Affect is restrictive, but appropriate to his mood. He is not psychotic. He is denying suicidal or homicidal ideations. Concentration fair. Memory intact. Insight and judgment are poor. DIAGNOSES: 1. Other specified bipolar disorder. 2. Rule out substance induced mood disorder. 3. Cannabis use disorder, moderate. TREATMENT PLAN: At this point, we will continue to monitor the patient for his depressive symptomatology and titrate his medications as indicated. I have started him on 50 mg of Seroquel last night, but he says it was not effective, that he used to take 100 mg before. I will go ahead and increase the Seroquel to 100 mg nightly. Will continue monitoring him for continued elevation and stabilization of his moods and resolution of suicidal ideation.
--- NOTE | 2018-10-03 17:25 | MHIPNPDOC ---
[facility] Progress Note Progress Note DATE OF SERVICE: 10/03/18 HISTORY: As per Dr. Llamas: "This is a 28-year-old male who was admitted with suicidal or wanting to cut his wrists. He is referred by the 's Administration office at [facility] ([facility]). The patient stated that he has been having suicidal thoughts for the past 3 to 4 months. He states that he has been off of medications for 1 year. He does not have a psychiatrist. The patient states that he has been depressed, feeling hopeless and helpless,experiencing anhedonia and not sleeping well." VITAL SIGNS: See below. NEW TEST RESULTS: See below CURRENT MEDICATIONS: See below. MENTAL STATUS EXAMINATION: Patient is a 28-year old male, who is alert, cooperative, angry, dressed in personal clothes with fair hygiene and grooming. Speech: Is fluent, spontaneous, normal rate, rhythm, tone and volume. Language skills are good. Thought processes including: Intact. Thought content: more rational, less angry thoughts, less depressive, less anxious. He is over thinking about his relationship with his GF, he thinks she might be at the end of her ropes. Abstract reasoning, and computation: intact. Description of associations: intact. Description of abnormal or psychotic thoughts: Denies auditory or visual hallucinations, denies thought delusions, denies Hi, denies SI Judgment: improving Insight: improving Orientation: x 4. Recent and remote memory: intact. Attention span and concentration: good. Language: Bahamian, well structured. Fund of knowledge: average. Mood: euthymic Affect: Angry, sad, irritable DIAGNOSES: 1. Bipolar 2 disorder, mixed 2. Cluster B personality traits 3. Marihuana use disorder ASSESSMENT: The patient reports he feels a little bit better, he has been talking to other patients but at night when he goes to sleep, his mind starts racing because his GF's parents keep telling her to break up with him because they do not understand mental illness. The patient reports he feels less irritable, he never developed side effects secondary to Abilify. He tells me has not been able to sleep well.This production underwriter has increased the dose to 5 mgs. PO BID. he will have blood drawn for a Depakote level tomorrow. MANAGEMENT PLAN: Depakote to 750 mgs PO BID and start Abilify 5 mgs PO BID. Increase Seroquel to 200 mgs PO QHS TIME SPENT: 20 minutes. Vital Signs Vital Signs Date Time Temp Pulse Resp B/P (MAP) Pulse Ox O2 Delivery O2 Flow Rate FiO2 10/03/18 11:00 Room Air 10/03/18 06:35 97.7 76 14 109/59 (76) 09/29/18 20:44 98 Current Medications Current Medications Acetaminophen (Tylenol Tab) 650 mg Q6HP PRN PO HEADACHE or DISCOMFORT; Start 09/29/18 at 18:00; Status Cancel Al Hydrox/Mg Hydrox/Simethicone (Mylanta) 30 ml Q4HP PRN PO HEARTBURN/INDIGESTION; Start 09/29/18 at 18:00 Aripiprazole (AbiLIFY) 2.5 mg BID PO Last administered on 10/03/18at 11:58; Start 10/02/18 at 21:00 Divalproex Sodium (Depakote) 500 mg BID PO Last administered on 10/02/18at 09:47; Start 09/30/18 at 21:00; Stop 10/02/18 at 15:00; Status DC Divalproex Sodium (Depakote) 750 mg BID PO Last administered on 10/03/18at 08:51; Start 10/02/18 at 21:00 Home Med (Med Rec Complete!) ASDIRECTED XX ; Start 09/29/18 at 17:15; Stop 09/29/18 at 17:15; Status DC Ibuprofen (Advil) 600 mg Q6HP PRN PO MODERATE PAIN (PS 5-7); Start 10/02/18 at 15:15 Magnesium Hydroxide (Milk Of Magnesia) 30 ml DAILYPRN PRN PO CONSTIPATION; Start 09/29/18 at 18:00 Nicotine (Nicoderm Cq 21mg) 1 patch DAILY TD Last administered on 10/03/18 08:51; Start 09/30/18 at 09:00 Quetiapine Fumarate (SEROquel) 50 mg QHS PO Last administered on 09/30/18at 23:21; Start 09/30/18 at 21:00; Stop 10/01/18 at 13:06; Status DC Quetiapine Fumarate (SEROquel) 100 mg QHS PO Last administered on 10/01/18at 22:25; Start 10/01/18 at 21:00; Stop 10/02/18 at 15:12; Status DC Quetiapine Fumarate (SEROquel) 150 mg QHS PO Last administered on 10/02/18at 21:30; Start 10/02/18 at 21:00 Trazodone HCl (Desyrel) 50 mg QHSP PRN PO INSOMNIA Last administered on 10/01/18at 22:25; Start 09/29/18 at 18:00; Stop 10/02/18 at 14:30; Status DC Allergies Coded Allergies: Penicillins (Verified Allergy, Unknown, 09/29/18) A-FIB/CHADSVASC A-FIB History Current/History of A-Fib/PAF?: No Current Oral Anticoagulant The: No Age/Risk Factor Scoring CHADSVASC: CHADSVASC Response (Comments) Value Age Risk Factor Age < 65 years old 0 Gender Risk Factor Male 0 Hx of CHF No 0 Hx of HTN No 0 Hx of Stroke/TIA/or VTE No 0 Hx of Diabetes No 0 Hx of Vascular Disease No 0 Total 0 Treatment Treatment ordered: NONE Reason Anticoagulant not given: Not indicated/[id number] HALEY GONZALEZ MD Oct 03, 2018 14:09
[2018-10-03 18:00] VITALS: BP 138/18
[2018-10-03] MEDS: QUEtiapine FUMARATE 200 MG TAB PO SCH (23:11)
[2018-10-04] MEDS: DIVALPROEX 250 MG TAB PO SCH ×2 (08:38→22:46)
[2018-10-04] MEDS: NICOTINE 21MG/24HR 1 EA TRANSDERMAL TD SCH (08:39)
[2018-10-04] MEDS: ESCITALOPRAM OXALATE 10 MG TAB (LEXAPRO) PO SCH (14:36)
[2018-10-04 18:00] VITALS: BP 128/84
--- NOTE | 2018-10-04 18:40 | MHIPNPDOC ---
[facility] Progress Note Progress Note DATE OF SERVICE: 10/04/18 HISTORY: As per Dr. Llamas: "This is a 28-year-old male who was admitted with suicidal or wanting to cut his wrists. He is referred by the [facility]'s Administration office at [facility] ([facility]). The patient stated that he has been having suicidal thoughts for the past 3 to 4 months. He states that he has been off of medications for 1 year. He does not have a psychiatrist. The patient states that he has been depressed, feeling hopeless and helpless,experiencing anhedonia and not sleeping well." VITAL SIGNS: See below. NEW TEST RESULTS: See below CURRENT MEDICATIONS: See below. MENTAL STATUS EXAMINATION: Patient is a 28-year old male, who is alert, cooperative, angry, dressed in personal clothes with fair hygiene and grooming. Speech: Is fluent, spontaneous, normal rate, rhythm, tone and volume. Language skills are good. Thought processes including: Intact. Thought content: less angry, less anxious, less depressed Abstract reasoning, and computation: intact. Description of associations: intact. Description of abnormal or psychotic thoughts: Denies auditory or visual hallucinations, denies thought delusions, denies Hi, denies SI Judgment: improving Insight: improving Orientation: x 4. Recent and remote memory: intact. Attention span and concentration: good. Language: Slovenian, well structured. Fund of knowledge: average. Mood: sad, a little anxious Affect: Improving DIAGNOSES: 1. Bipolar 2 disorder, mixed 2. Cluster B personality traits 3. Marihuana use disorder ASSESSMENT: The MSE has not changed much since yesterday but he is calmer, he is processing his emotions in a better way, more rationally. He was started on Lexapro 10 mgs PO QAM today. He has a h/o of poor response to antidepressants but he has never been on Lexapro, lo, maybe the combination of Abilify and Lexapro can give him some stability. MANAGEMENT PLAN: Depakote to 750 mgs PO BID and start Abilify 5 mgs PO BID. Increase Seroquel to 200 mgs PO QHS TIME SPENT: 20 minutes. Vital Signs Vital Signs Date Time Temp Pulse Resp B/P (MAP) Pulse Ox O2 Delivery O2 Flow Rate FiO2 10/04/18 08:33 Room Air 10/03/18 18:00 98.6 82 18 138/18 (58) 09/29/18 20:44 98 Laboratory Data 24H Labs Laboratory Tests 2 10/04/18 08:58: Valproic Acid (Depakene) Level 59.5 Current Medications Current Medications Acetaminophen (Tylenol Tab) 650 mg Q6HP PRN PO HEADACHE or DISCOMFORT; Start 09/29/18 at 18:00; Status Cancel Al Hydrox/Mg Hydrox/Simethicone (Mylanta) 30 ml Q4HP PRN PO HEARTBURN/INDIGESTION; Start 09/29/18 at 18:00 Aripiprazole (AbiLIFY) 2.5 mg BID PO Last administered on 10/03/18at 11:58; Start 10/02/18 at 21:00; Stop 10/03/18 at 17:08; Status DC Aripiprazole (AbiLIFY) 5 mg BID PO Last administered on 10/04/18at 08:38; Start 10/03/18 at 21:00 Divalproex Sodium (Depakote) 500 mg BID PO Last administered on 10/02/18at 09:47; Start 09/30/18 at 21:00; Stop 10/02/18 at 15:00; Status DC Divalproex Sodium (Depakote) 750 mg BID PO Last administered on 10/04/18at 08:38; Start 10/02/18 at 21:00 Escitalopram Oxalate (Lexapro) 10 mg DAILY PO Last administered on 10/04/18at 14:36; Start 10/04/18 at 09:00 Home Med (Med Rec Complete!) ASDIRECTED XX ; Start 09/29/18 at 17:15; Stop 09/29/18 at 17:15; Status DC Ibuprofen (Advil) 600 mg Q6HP PRN PO MODERATE PAIN (PS 5-7) Last administered on 10/03/18at 23:12; Start 10/02/18 at 15:15 Magnesium Hydroxide (Milk Of Magnesia) 30 ml DAILYPRN PRN PO CONSTIPATION; Start 09/29/18 at 18:00 Nicotine (Nicoderm Cq 21mg) 1 patch DAILY TD Last administered on 10/04/18at 08:39; Start 09/30/18 at 09:00 Quetiapine Fumarate (SEROquel) 50 mg QHS PO Last administered on 09/30/18at 23:21; Start 09/30/18 at 21:00; Stop 10/01/18 at 13:06; Status DC Quetiapine Fumarate (SEROquel) 100 mg QHS PO Last administered on 10/01/18at 22:25; Start 10/01/18 at 21:00; Stop 10/02/18 at 15:12; Status DC Quetiapine Fumarate (SEROquel) 150 mg QHS PO Last administered on 10/02/18at 21:30; Start 10/02/18 at 21:00; Stop 10/03/18 at 17:26; Status DC Quetiapine Fumarate (SEROquel) 200 mg QHS PO Last administered on 10/03/18at 23:11; Start 10/03/18 at 21:00 Trazodone HCl (Desyrel) 50 mg QHSP PRN PO INSOMNIA Last administered on 10/01/18at 22:25; Start 09/29/18 at 18:00; Stop 10/02/18 at 14:30; Status DC Allergies Coded Allergies: Penicillins (Verified Allergy, Unknown, 09/29/18) HALEY GONZALEZ MD October 04, 2018 18:40
[2018-10-04] MEDS: QUEtiapine FUMARATE 200 MG TAB PO SCH (22:45)
[2018-10-05 07:12] LABS: CHOLESTEROL RISK RATIO 4.783 (<5)
[2018-10-05 07:14] VITALS: BP 138/72
[2018-10-05] MEDS: DIVALPROEX 250 MG TAB PO SCH ×2 (09:06→22:15)
[2018-10-05] MEDS: ESCITALOPRAM OXALATE 10 MG TAB (LEXAPRO) PO SCH (09:07)
[2018-10-05] MEDS: NICOTINE 21MG/24HR 1 EA TRANSDERMAL TD SCH (09:07)
--- NOTE | 2018-10-05 13:48 | MHIPNPDOC ---
[facility] Progress Note Progress Note DATE OF SERVICE: 10/05/18 HISTORY: As per Dr. Llamas: "This is a 28-year-old male who was admitted with suicidal or wanting to cut his wrists. He is referred by the [place]'s Administration office at [facility] ([facility]). The patient stated that he has been having suicidal thoughts for the past 3 to 4 months. He states that he has been off of medications for 1 year. He does not have a psychiatrist. The patient states that he has been depressed, feeling hopeless and helpless,experiencing anhedonia and not sleeping well." VITAL SIGNS: See below. NEW TEST RESULTS: See below CURRENT MEDICATIONS: See below. MENTAL STATUS EXAMINATION: Patient is a 28-year old male, who is alert, pleasant, cooperative, dressed in personal clothes with improved hygiene and grooming, blond short hair.. Speech: Is fluent, spontaneous, normal rate, rhythm, tone and volume. Language skills are good. Thought processes including: Intact. Thought content: no longer angry, less anxious, less depressed Abstract reasoning, and computation: intact. Description of associations: intact. Description of abnormal or psychotic thoughts: Denies auditory or visual hallucinations, denies thought delusions, denies Hi, endorses "fleeting SI" but says will not act on his thoughts and has no specific plan. Judgment: improving Insight: fair Orientation: x 4. Recent and remote memory: intact. Attention span and concentration: good. Language: Norwegian, well structured. Fund of knowledge: average. Mood: mild anxiety Affect: anxiety, full range, does smile DIAGNOSES: 1. Bipolar 2 disorder, mixed 2. Cluster B personality traits 3. Marihuana use disorder ASSESSMENT: Today endorses improved anxiety symptoms, says he still has poor sleep, but appetite is good and he has been social in the milieu/attending groups/has been adherent with medication regime. Endorses "fleeting SI" but says will not act on his thoughts and has no specific plan. When asked if he feels ready to leave tomorrow states he is "not there yet" and wants to stay over the weekend. States today he started to have "restless legs" and that he discussed this with a patient who had similar symptoms prior to the symptoms starting. Agrees to continue medications including Lexapro 10 mg PO QAM. Discussed how abilify can both stabilize his depression and augment his antidepressant. Agrees to start propranolol PRN 10 mg TIDP for restless leg symptoms, vitals stable today 138/73 with pulse of 64, does not feel lightheaded or dizzy. Denies HI/AH,VH, paranoia/lamin. MANAGEMENT PLAN: Depakote to 750 mgs PO BID and continue Abilify 5 mgs PO BID. Continue Seroquel to 200 mgs PO QHS TIME SPENT: 15 minutes. Vital Signs Vital Signs Date Time Temp Pulse Resp B/P (MAP) Pulse Ox O2 Delivery O2 Flow Rate FiO2 10/05/18 07:14 98.2 64 14 138/72 (94) 10/04/18 08:33 Room Air 09/29/18 20:44 98 Laboratory Data 24H Labs Laboratory Tests 2 10/05/18 06:28: Triglycerides Level 87, LDL Cholesterol 123H, Total Cholesterol 177, Non-HDL Cholesterol (LDL + VLDL) 140, Total HDL Cholesterol 37L, Cholesterol/HDL Ratio 4.783 Current Medications Current Medications Acetaminophen (Tylenol Tab) 650 mg Q6HP PRN PO HEADACHE or DISCOMFORT; Start 09/29/18 at 18:00; Status Cancel Al Hydrox/Mg Hydrox/Simethicone (Mylanta) 30 ml Q4HP PRN PO HEARTBURN/INDIGESTION; Start 09/29/18 at 18:00 Aripiprazole (AbiLIFY) 2.5 mg BID PO Last administered on 10/03/18at 11:58; Start 10/02/18 at 21:00; Stop 10/03/18 at 17:08; Status DC Aripiprazole (AbiLIFY) 5 mg BID PO Last administered on 10/05/18at 09:07; Start 10/03/18 at 21:00 Divalproex Sodium (Depakote) 500 mg BID PO Last administered on 10/02/18at 09:47; Start 09/30/18 at 21:00; Stop 10/02/18 at 15:00; Status DC Divalproex Sodium (Depakote) 750 mg BID PO Last administered on 10/05/18 09:06; Start 10/02/18 at 21:00 Escitalopram Oxalate (Lexapro) 10 mg DAILY PO Last administered on 10/05/18at 09:07; Start 10/04/18 at 09:00 Home Med (Med Rec Complete!) ASDIRECTED XX ; Start 09/29/18 at 17:15; Stop 09/29/18 at 17:15; Status DC Ibuprofen (Advil) 600 mg Q6HP PRN PO MODERATE PAIN (PS 5-7) Last administered on 10/03/18 23:12; Start 10/02/18 at 15:15 Magnesium Hydroxide (Milk Of Magnesia) 30 ml DAILYPRN PRN PO CONSTIPATION Last administered on 10/04/18at 19:48; Start 09/29/18 at 18:00 Nicotine (Nicoderm Cq 21mg) 1 patch DAILY TD Last administered on 10/05/18 09:07; Start 09/30/18 at 09:00 Quetiapine Fumarate (SEROquel) 50 mg QHS PO Last administered on 09/30/18at 23:21; Start 09/30/18 at 21:00; Stop 10/01/18 at 13:06; Status DC Quetiapine Fumarate (SEROquel) 100 mg QHS PO Last administered on 10/01/18at 22:25; Start 10/01/18 at 21:00; Stop 10/02/18 at 15:12; Status DC Quetiapine Fumarate (SEROquel) 150 mg QHS PO Last administered on 10/02/18at 21:30; Start 10/02/18 at 21:00; Stop 10/03/18 at 17:26; Status DC Quetiapine Fumarate (SEROquel) 200 mg QHS PO Last administered on 10/04/18at 22:45; Start 10/03/18 at 21:00 Trazodone HCl (Desyrel) 50 mg QHSP PRN PO INSOMNIA Last administered on 10/01/18 at 22:25; Start 09/29/18 at 18:00; Stop 10/02/18 at 14:30; Status DC Allergies Coded Allergies: Penicillins (Verified Allergy, Unknown, 09/29/18) FABI LOWE PGY-1 October 05, 2018 13:48
[2018-10-05] MEDS ORDERED: PROPRANOLOL 10 MG TAB PO PRN (14:00)
[2018-10-05 18:00] VITALS: BP 122/66
[2018-10-05] MEDS: QUEtiapine FUMARATE 200 MG TAB PO SCH (22:16)
[2018-10-06 07:10] VITALS: BP 110/64
[2018-10-06] MEDS: NICOTINE 21MG/24HR 1 EA TRANSDERMAL TD SCH (08:48)
[2018-10-06] MEDS: DIVALPROEX 250 MG TAB PO SCH (08:49)
[2018-10-06] MEDS: ESCITALOPRAM OXALATE 10 MG TAB (LEXAPRO) PO SCH (08:49)
[2018-10-06] MEDS ORDERED: ABIL10TA9 PO ×2 (11:52→12:10)
[2018-10-06] MEDS ORDERED: QUET1TAB9 PO (12:05)
[2018-10-06] MEDS ORDERED: DEPA250T32 PO (12:05)
[2018-10-06] MEDS ORDERED: NICO21PAT TD (12:05)
[2018-10-06] MEDS ORDERED: PROP10TA56 PO (12:05)
[2018-10-06] MEDS ORDERED: ABIL1INJ2 IM ×2 (12:07→12:09)
[2018-10-06] MEDS ORDERED: BENZ0.5T PO (12:11)
[2018-10-06] MEDS ORDERED: ARIPiprazole MONOHYDRATE 400 MG INJ (ABILIFY)(J0401) IM ONE (13:00)
--- NOTE | 2018-10-06 21:19 | MHDSPDOC ---
[facility] Discharge Summary Discharge Summary DATE OF ADMISSION: Sep 29, 2018 at 17:51 DATE OF DISCHARGE: October 06, 2018 at 14:52 DISCHARGE DIAGNOSES: 1. Bipolar 2 disorder, mixed 2. Cluster B personality traits 3. Marihuana use disorder REASON FOR ADMISSION: As per Dr. Llamas: "This is a 28-year-old male who was admitted with suicidal or wanting to cut his wrists. He is referred by the [place]'s Administration office at [facility] ([facility]). The patient stated that he has been having suicidal thoughts for the past 3 to 4 months. He states that he has been off of medications for 1 year. He does not have a psychiatrist. The patient states that he has been depressed, feeling hopeless and helpless,experiencing anhedonia and not sleeping well." CONSULTANTS INVOLVED: None TREATMENT AND PROGRESS ON THE UNIT : Upon initial evaluation, the patient was very irritable, angry with low frustration tolerance but all waht he wanted was to be heard because she had an incident with someone at [facility] and wanted to be believed and validated. Once he felt validated, was able to comply with treatment. He described having problems with his longtime girlfriend and blamed his in laws for telling her to break up with him while he was at the hospital, because they don't believe he has a mental illness, mostly because they don't believe in mental illness. He was introduced to Abilify, which he never had before and he did show a good response to medication. He said he would accept the Abilify Mantenna PATEL and he recived it today just before he was discharged. He reported that he had sleep problems, mostly because he used to speak with his girlfriend at night and then he would keep on thinking about their problems and about their conversation. He fears that she is going to leave him. He is unhappy living in [place], but if he would decide to leave this area, she would not follow him because she is from this area and she has relatives here, including her children who have known the patient since an early age and who has helped raised them like a father. He fears that if he leaves he won't be able to see the children because he is not their father, has no legal rights over them and thinks his GF would not allow him to see them. He says he has a relative in [place] who has offered him to stay at his house if he would return to [place], where he was born, but he doesn't go because he is afraid of losing his GF and the children. 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 The patient was overall, pleasant and cooperative. HOSPITAL COURSE: As above DISCHARGE ASSESSMENT: At the time of his discharge, the patient was not suicid al, not homicidal and not psychotic. He received his Abilify Mantenna 400 mgs IM, he didn't develop adverse effects/side effects. He was able to contract for safety, he was future orientated. MENTAL STATUS EXAMINATION ON DISCHARGE: Patient is a 28-year old male, who is alert, cooperative, angry, dressed in personal clothes with fair hygiene and grooming. Speech: Is fluent, spontaneous, normal rate, rhythm, tone and volume. Language skills are good. Thought processes including: Intact. Thought content: less angry, less anxious, less depressed Abstract reasoning, and computation: intact. Description of associations: intact. Description of abnormal or psychotic thoughts: Denies auditory or visual hallucinations, denies thought delusions, denies Hi, denies SI Judgment: improving Insight: improving Orientation: x 4. Recent and remote memory: intact. Attention span and concentration: good. Language: Czech, well structured. Fund of knowledge: average. Mood: sad, a little anxious Affect: Improving MEDICATIONS ON DISCHARGE: Scheduled Aripiprazole (Abilify Maintena) 400 Mg Suser.syr, 400 MG IM Q4WKS for bipolar disorder, #400 Patient should receive an injection every 30 days. Next dose is 11/06/18 Aripiprazole (Abilify) 10 Mg Tablet, 1 TAB PO DAILY for mood disorder for 7 Days, #7 split the tablet in half and take half in the morning and half at night Benztropine Mesylate (Benztropine Mesylate) 0.5 Mg Tablet, 0.5 MG PO BID for extrapyramidal side effects for 7 Days, #14 Divalproex Sodium (Depakote) 250 Mg Tablet., 750 MG PO BID for bipolar disorder, #42 Nicotine (Nicotine Patch) 21 Mg Patch.td24, 1 PATCH TD DAILY for nicotine cravi ngs, #7 Quetiapine Fumarate (Quetiapine Fumarate) 200 Mg Tablet, 200 MG PO QHS for insomnia, #7 Scheduled PRN Propranolol HCl (Propranolol HCl) 10 Mg Tablet, 10 MG PO TIDP PRN for RESTLESSNESS, #21 PLAN/FOLLOWUP ARRANGEMENTS: Follow Up Care Education Label * Mental Health Appt 1 * Mental Health [facility] * Established With This Provider No * Therapist SABA ERNST * Date October 13, 2018 * Time 08:00 * Address of Clinic or Practice [address] [place] [address] * * Additional information Please arrive 15 minutes early to fill out new patient paperwork. Also, please remember to bring your insurance card and photo ID to this appointment. Follow Up Care Education Label * Medical * Medical Follow Up [facility] * Established With This Provider Yes * * Additional information We are currently in contact with your primary care provider. Once we hear back from your provider, we will call you with the appointment date/time. The amount of time spent in the coordination of care for this patient was approximately 30 minutes. Vital Signs/I&Os Vital Signs Date Time Temp Pulse Resp B/P (MAP) Pulse Ox O2 Delivery O2 Flow Rate FiO2 10/06/18 07:10 98.7 81 16 110/64 (79) 10/04/18 08:33 Room Air Medications Scheduled Aripiprazole (Abilify Maintena) 400 Mg Suser.syr, 400 MG IM Q4WKS for bipolar disorder, #400 Patient should receive an injection every 30 days. Next dose is 11/06/18 Aripiprazole (Abilify) 10 Mg Tablet, 1 TAB PO DAILY for mood disorder for 7 Days, #7 split the tablet in half and take half in the morning and half at night Benztropine Mesylate (Benztropine Mesylate) 0.5 Mg Tablet, 0.5 MG PO BID for extrapyramidal side effects for 7 Days, #14 Divalproex Sodium (Depakote) 250 Mg Tablet., 750 MG PO BID for bipolar disorder, #42 Nicotine (Nicotine Patch) 21 Mg Patch.td24, 1 PATCH TD DAILY for nicotine cravings, #7 Quetiapine Fumarate (Quetiapine Fumarate) 200 Mg Tablet, 200 MG PO QHS for insomnia, #7 Scheduled PRN Propranolol HCl (Propranolol HCl) 10 Mg Tablet, 10 MG PO TIDP PRN for RESTLESSNESS, #21 Allergies Coded Allergies: Penicillins (Verified Allergy, Unknown, 09/29/18) HALEY GONZALEZ MD October 06, 2018 21:17
== END 2018-10-06 14:52 | disposition home or self-care (01) | DRG 885 ==
LOC: M ED 14:02 → M ED INP 17:51 → M PSY 20:25
PROVIDERS: ADMIT Psychiatry & Neurology Psychiatry; ATTEND Psychiatry & Neurology Psychiatry
DX: F31.89 Other bipolar disorder (principal); F60.89 Other specific personality disorders; F12.20 Cannabis dependence, uncomplicated; Z88.0 Allergy status to penicillin; Z79.899 Other long term (current) drug therapy; F17.210 Nicotine dependence, cigarettes, uncomplicated

== ENCOUNTER 2018-10-16 21:27 | Inpatient (IN) | payer OTHER ==
[~2018-10-16] VITALS: Ht 170.2 cm; Wt 59.1 kg
[~2018-10-16 21:27] MED LIST changes: +ABIL10TA9 PO; +ABIL1INJ2 IM; +BENZ0.5T PO; +DEPA250T32 PO; +NICO21PAT TD; +PROP10TA56 PO; +QUET1TAB9 PO
[2018-10-16 22:18] LABS: HEMATOCRIT 42.8 % (42.0-52.0); HEMOGLOBIN 14.8 g/dl (13.5-17.5); MEAN CORPUSCULAR HEMOGLOBIN 31.7 pg (27.0-33.0); MEAN CORPUSCULAR HGB CONC 34.6 g/dl (32.0-36.5); MEAN CORPUSCULAR VOLUME 91.6 fl (80.0-96.0); PLATELET COUNT, AUTOMATED 339 10^3/uL (150-450); RED BLOOD COUNT 4.67 10^6/uL (4.30-6.10); WHITE BLOOD COUNT 13.7 10^3/uL (4.0-10.0)
[2018-10-16 22:43] LABS: ALT/SGPT 33 U/L (12-78); BILIRUBIN,DIRECT < 0.1 MG/DL (0.0-0.2); BILIRUBIN,TOTAL 0.2 MG/DL (0.2-1.0); BLOOD UREA NITROGEN 18 MG/DL (7-18); CALCIUM LEVEL 9.2 MG/DL (8.5-10.1); CARBON DIOXIDE LEVEL 28 MEQ/L (21-32); CHLORIDE LEVEL 104 MEQ/L (98-107); CREATININE FOR GFR 0.82 MG/DL (0.70-1.30); ETHYL ALCOHOL (ETHANOL) < 0.003 % (0.000-0.010); GLOMERULAR FILTRATION RATE > 60.0 (>60); GLUCOSE, FASTING 96 MG/DL (70-100); SALICYLATE LEVEL 3.2 MG/DL (5.0-30.0); SODIUM LEVEL 141 MEQ/L (136-145); TOTAL PROTEIN 7.5 GM/DL (6.4-8.2); VALPROIC ACID (DEPAKOTE) 7.2 UG/ML (50.0-100.0)
[2018-10-16 22:44] LABS: ACETAMINOPHEN LEVEL < 2.0 UG/ML (10.0-30.0)
[2018-10-16 23:16] LABS: AMPHETAMINES LEVEL URINE NEGATIVE (NEGATIVE); BARBITURATES URINE NEGATIVE (NEGATIVE); BENZODIAZEPINES URINE NEGATIVE (NEGATIVE); CANNABINOIDS URINE POSITIVE (NEGATIVE); COCAINE METABOLITE URINE NEGATIVE (NEGATIVE); METHADONE URINE NEGATIVE (NEGATIVE); OPIATES URINE NEGATIVE (NEGATIVE); PHENCYCLIDINE URINE NEGATIVE (NEGATIVE)
[2018-10-16] MEDS ORDERED: QUET1TAB9 PO (23:40)
[2018-10-16] MEDS ORDERED: DIVA250T67 PO (23:40)
[2018-10-16] MEDS ORDERED: ABIL1INJ2 IM (23:40)
[2018-10-16] MEDS ORDERED: ACETAMINOPHEN TAB 650MG DOSE (2X325MG) PO PRN (23:45)
[2018-10-16] MEDS ORDERED: MOM 30ML SUSPENSION UDC PO PRN (23:45)
[2018-10-16] MEDS ORDERED: traZODone 50 MG TAB PO PRN (23:45)
[2018-10-16] MEDS ORDERED: MAALOX 30 ML SUSP *UDC PO PRN (23:45)
[2018-10-17 00:25] VITALS: BP 131/89
[2018-10-17] MEDS: PROPRANOLOL 10 MG TAB PO PRN (00:33)
[2018-10-17 06:35] VITALS: BP 121/65
[2018-10-17] MEDS: NICOTINE 21MG/24HR 1 EA TRANSDERMAL TD SCH (08:45)
[2018-10-17] MEDS: DIVALPROEX 250 MG TAB PO SCH ×2 (08:45→23:02)
[2018-10-17] MEDS: BENZTROPINE 0.5 MG TAB PO SCH ×2 (08:45→23:01)
[2018-10-17 12:00] VITALS: BP 122/82
--- NOTE | 2018-10-17 14:57 | MHHPEPDOC ---
General Date Of Admission: October 16, 2018 Legal Status: 9.39 Chief Complaint suicidal ideation History of Present Illness HISTORY OF THE PRESENT ILLNESS: Patient is a 28 -year-old , male, who, according to ED report: "Reason for Referral pt was recently discharged from [facility] on 10/06/18, presents to ED stating he is actively suicidal with plan to OD on Heroin, then jump in the river.Self-mutilation noted to left arm(superficial lacerations noted). Chief Complaint Pt states, "I was discharged too early." Pt reports being discharged 2 wks ago, admits being compliant with medications the first few days, however decided to stop taking the Ability because of the side effects(RLS). Admits he was still doing well, but went to refill his medications(after the 7 day script was completed) and the pharmacist reported there was an insurance problem. He was directed to contact the insurance company, but did not follow through. As a result, he now is experiencing racing thoughts, sleep disturbances, and SI with plans(slitting wrists, OD on Heroin then jump in the River). In addition to pt's non-compliance; pt reports other stressors include struggling with poor self- esteem, and still debating on moving to [place]. He admits feeling overwhelmed today with suicidal thoughts, he mutilated left arm with a razor blade(numerous superficial lacerations noted)" Psychiatric Review of Systems Depression (2 or more weeks): other (He has not been depressed for 2 weeks or more. He was recnetly discharged from [facility] and he was doing fine. He said that around Tuesday last week he sterted feeling sad, hopeless, helpless, worthless, guilty, foggy and didn't have any appetite. He stopped taking the Abilify becuase, he says that it cause him restless legs. On Tuesday morning he still took Depakote) Shannan (4 or more days of): irritable/elevated mood (For 48 hours, during the weekend, but he was labile becuase hw was grandiose and then, he was crying.), expansive mood (over the weeknd), grandiosity (over the weekend (48 hours ago)), decreased need for sleep, still with energy (he felt he had a lot of energy over the weekend, couldn't go to sleep and started cleaning the entire house. On tuesday he cooked breakfast) Psychosis: denies PTSD: denies Anxiety: gen/non-specific anxiety, situational anxiety, stressor related anxiety Anxiety/ 6 months or more of: restlessness, keyed up, easily fatigued, difficul ty concentrating, irritability, muscle tension Past Psychiatric History Previous Psychiatric Diagnosis: bipolar disorder, cannabis use disorder Previous Psychiatric Admissions: Yes, in 2017 for depression and suicidal thoughts. At that time he tried to hang himself with a belt Suicide Attempts: yes, he tried to hang himself with a belt in 2017 Psychiatric Follow-up: Yes, Psychiatric medications: he has been on Depakote, Effexor I did not elicit any hypomanic or manic like symptoms of posttraumatic stress disorder (PTSD) or obsessive compulsive disorder (OCD) in this patient. Past Medical History Head Injury: Yes (he had a fracture on his skull when he was in ) Seizures: No Hospitalizations: Yes Surgeries: Yes (on hislegs, corrective surgery) Family Medical/Psychiatric HX Medical Problems Denies Psychiatric Disorders: Yes (Mother has not been diagnosed but he thinks she has problems (psychiatric)) Addiction: Yes (uncles) Suicide Attemps/Completions: No Addiction History nicotine (1.5 packs/day), other (marihuana, he says he has not been smoking that much since he was discharged. he says he had a Monster on tuesday night when he was going to go to work) Social History Childhood: "t'was f....up". "Mom has apologized a lot for y childhood". he says his father was extremely angry, parents relationship was bad, his mother being very presybeterian and wanting to make her children very presybeterian. His brother hated him, he says. He has a young sister, was treated like a lg by his m other whereas him and his bother were not treated well. Mother was verbally and emotionally abusive. His father never was never physically violent towards him. Mom had a lot of boyfriends going in and out of the house. Parents when he was 5 years old. he says that his mother blamed him and his brother to scare her boyfriends (they left her) Abuse/Trauma: Please read above Current Living Situation: Lives with his long life girlfriend and her children (he has raise them) Education: HS diploma and some college education, online classed Employment: employed Social Support: his GF, his mother Legal: He was arrested once ( he was very young) and he was skating without protection, he fled from the Police because the Police tripped on his board when he was about to jump over a fence Marital: He was , got one and a half year later because she was unfaithful. Mental Status Examination General Appearance: well groomed, appears stated age, hospital scubs/clothing Build: average Demeanor: preoccupied Eye Contact: average Activity: average Behavior: cooperative Speech: clear, spontaneous, reg/rate,rhythm,volume Mood: depressed, anxious Affect: full, appropriate, congruent, anxious, other (depressed) Thought Process: logical/linear Thought Content (Delusions): none reported Thought Content (Other): preoccupied, obsessional, guilty, ideas of reference Thought Content (Aggressive): none reported Perception (Hallucinations): none reported Perception (Other): none reported Cognition (Impairment of): none reported Cognition(Intelligence Est.): average Oriented: Awake, Alert, Oriented times three Insight: poor Judgment: Poor Psychosis: Denies Diagnoses 1. Other specified mood disorder, r/o bipolar 2 disorder 2. Borderline personality disorder 3. Cannabis use disorder Assessment The patient is not insightful about not being responsible regarding his non compliance, he says that he had insurance problems, the insurance didn't want to approve the refills for his medications and he stopped himself from taking Abilify because it was causing restless leg syndrome. he is stressed out becaue he had a conversation with his GF about staying in this area or going to [facility] and they both agreed that he should go back. He is torn because he loves the children, he has raised them as if he would be their father and he says that he loves his GF. His mother has offered to pay fo the [employer] ticket for him to go back. Problem List Problems: (1) Suicidal ideation Status: Acute Response to Treatment: Improving Discussed With: Patient Problem Specific Plan: Monitor Clinically Initial Treatment Plan 1. Patient was admitted on a [9.39] status. 2. Complete history was obtained. 3. With patients permission, family will be contacted and database will be expanded. 4. Patients medication regimen will be reviewed and changed accordingly. 5. Patient will be provided with protected environment. 6. Patient will be treated with individual, group, and milieu therapies. 7. Patient will receive supportive psych-education. 8. Discharge planning will commence immediately. 9. Outpatient follow-up treatment will be strongly recommended. 10. The initial treatment plan will focus initially on: * Depression. * anxiety * ineffective coping * Risk for suicide. * Substance abuse. ESTIMATED LENGTH OF STAY 5-7 DAYS. TIME SPENT COUNSELING AND COORDINATING INITIAL CARE: 60 minutes. Vital Signs Vital Signs Date Time Temp Pulse Resp B/P (MAP) Pulse Ox O2 Delivery O2 Flow Rate FiO2 10/17/18 08:00 Room Air 10/17/18 06:35 97.4 101 14 121/65 (83) 10/16/18 23:01 100 Laboratory Data 24H Labs Laboratory Tests 2 10/16/18 21:46: Nucleated Red Blood Cells % (auto) 0.0, Anion Gap 9, Glomerular Filtration Rate > 60.0, Calcium Level 9.2, Aspartate Amino Transf (AST/SGOT) 20, Alanine Aminotransferase (ALT/SGPT) 33, Alkaline Phosphatase 72, Total Bilirubin 0.2, Direct Bilirubin < 0.1, Total Protein 7.5, Albumin 4.0, Albumin/Globulin Ratio 1.14, Thyroid Stimulating Hormone (TSH) 1.180, Salicylates Level 3.2L, Urine Amphetamines Screen NEGATIVE, Urine Benzodiazepines Screen NEGATIVE, Urine Opiates Screen NEGATIVE, Urine Methadone Screen NEGATIVE, Acetaminophen Level < 2.0L, Urine Barbiturates Screen NEGATIVE, Valproic Acid (Depakene) Level 7.2L, Urine Phencyclidine Screen NEGATIVE, Urine Cocaine Metabolite Screen NEGATIVE, Urine Cannabinoids Screen POSITIVEH, Ethyl Alcohol Level < 0.003 CBC/BMP Laboratory Tests 10/16/18 21:46 Red Blood Count 4.67, Mean Corpuscular Volume 91.6, Mean Corpuscular Hemoglobin 31.7, Mean Corpuscular Hemoglobin Concent 34.6, Red Cell Distribution Width 13.2 Medications Scheduled Aripiprazole (Abilify Maintena) 400 Mg Suser.syr, 400 MG IM MTHLY, (Reported) ADMINISTERED FOR OCTOBER, NEXT DOSE LISTED FOR 11/06/18 Divalproex Sodium (Divalproex Sodium) 250 Mg Tablet.dr, 750 MG PO BID, (Reported) Quetiapine Fumarate (Quetiapine Fumarate) 200 Mg Tablet, 200 MG PO QHS, (Reported) Allergies Coded Allergies: Penicillins (Verified Allergy, Unknown, 09/29/18) HALEY GONZALEZ MD October 17, 2018 13:32
--- NOTE | 2018-10-17 15:42 | HPEPDOC ---
General Date of Admission October 16, 2018 at 23:31 Chief Complaint The patient is a 28-year-old male admitted with a reason for visit of Major Dep ressive Disorder. History of Present Illness Patient is a here old male, who was unable to shrimp picker his medications due to medical insurance logistic issues. Patient started talking about killing himself by overdosing on heroin, cutting his wrists and jumping into a river, there is also mention of leaving a suicide note. Prior to episode had stopped taking his Abilify because of side effects. He began to experience racing thoughts and states disturbances. He was brought to the emergency room psychiatric unit for further evaluation and management. On assessment, he feels much better, he denies any underlying pain, shortness of breath, abdominal discomfort, nausea, vomiting, constipation or diarrhea Home Medications Scheduled Aripiprazole (Abilify Maintena) 400 Mg Suser.syr, 400 MG IM MTHLY, (Reported) ADMINISTERED FOR OCTOBER, NEXT DOSE LISTED FOR 11/06/18 Divalproex Sodium (Divalproex Sodium) 250 Mg Tablet.dr, 750 MG PO BID, (Reported) Quetiapine Fumarate (Quetiapine Fumarate) 200 Mg Tablet, 200 MG PO QHS, (Reported) Allergies Coded Allergies: Penicillins (Verified Allergy, Unknown, 09/29/18) Past Medical History Medical History Bipolar disorder Polysubstance abuse Nicotine dependence Depression and anxiety Surgical History Bilateral femoral surgery, [place], toe repair Family History Family history is unknown Social History Smokes 2 pack per day. Denies alcohol use, ongoing THC use A-FIB/CHADSVASC A-FIB History Current/History of A-Fib/PAF?: No Current Oral Anticoagulant The: No Review of Systems Other systems Review of systems was limited due to patient's mental state Physical Examination Other physical findings GENERAL: NAD SKIN : Warm, dry intact HEENT: Atraumatic, normocephalic, PERRL, moist mucous membrane CV: Regular rate and rhythm, S1S2, no JVD, no edema, distal pulses + and palpable RESP: CTAB, no accessory muscle use noted ABDOMEN: BS+ non distended non tender MS: no joint deformities NEURO: Alert and oriented x 3, CN2-12 grossly intact PSYCH: no anxiety or agitation Vital Signs Vital Signs Date Time Temp Pulse Resp B/P (MAP) Pulse Ox O2 Delivery O2 Flow Rate FiO2 5/14/19 12:00 98.1 100 18 122/82 (95) 10/17/18 08:00 Room Air 10/16/18 23:01 100 Laboratory Data Labs 24H Laboratory Tests 2 10/16/18 21:46: Nucleated Red Blood Cells % (auto) 0.0, Anion Gap 9, Glomerular Filtration Rate > 60.0, Calcium Level 9.2, Aspartate Amino Transf (AST/SGOT) 20, Alanine Aminotransferase (ALT/SGPT) 33, Alkaline Phosphatase 72, Total Bilirubin 0.2, Direct Bilirubin < 0.1, Total Protein 7.5, Albumin 4.0, Albumin/Globulin Ratio 1.14, Thyroid Stimulating Hormone (TSH) 1.180, Salicylates Level 3.2L, Urine Amphetamines Screen NEGATIVE, Urine Benzodiazepines Screen NEGATIVE, Urine Opiates Screen NEGATIVE, Urine Methadone Screen NEGATIVE, Acetaminophen Level < 2.0L, Urine Barbiturates Screen NEGATIVE, Valproic Acid (Depakene) Level 7.2L, Urine Phencyclidine Screen NEGATIVE, Urine Cocaine Metabolite Screen NEGATIVE, Urine Cannabinoids Screen POSITIVEH, Ethyl Alcohol Level < 0.003 CBC/BMP Laboratory Tests 10/16/18 21:46 Red Blood Count 4.67, Mean Corpuscular Volume 91.6, Mean Corpuscular Hemoglobin 31.7, Mean Corpuscular Hemoglobin Concent 34.6, Red Cell Distribution Width 13.2 Assessment/Plan Suicidal ideation Nicotine dependence Depression and anxiety Polysubstance abuse with THC Bipolar depression PLAN Currently, admitted for suicidal ideation without other significant interval health comorbidities At this time Patient has no underlying medical active issues requiring follow- up and management by medical team Management of suicidal ideation, depression, anxiety, by primary team We'll sign off, please reconsult medical team as needed Plan / VTE VTE Prophylaxis Ordered?: No VTE Exclusion Mechanical Proph: Low Risk for VTE MANOHAR CAAL October 17, 2018 15:42
[2018-10-17 18:00] VITALS: BP 123/80
[2018-10-17] MEDS: QUEtiapine FUMARATE 50 MG TAB PO SCH (23:01)
[2018-10-17] MEDS: rOPINIRole 1MG TAB PO SCH (23:01)
[2018-10-18 06:54] VITALS: BP 123/81
[2018-10-18] MEDS: BENZTROPINE 0.5 MG TAB PO SCH ×2 (08:09→21:36)
[2018-10-18] MEDS: QUEtiapine FUMARATE 25 MG TAB PO SCH (08:09)
[2018-10-18] MEDS: NICOTINE 21MG/24HR 1 EA TRANSDERMAL TD SCH (08:09)
[2018-10-18] MEDS: DIVALPROEX 250 MG TAB PO SCH ×2 (08:10→21:36)
[2018-10-18 18:00] VITALS: BP 122/81
[2018-10-18] MEDS: QUEtiapine FUMARATE 50 MG TAB PO SCH (21:36)
[2018-10-18] MEDS: rOPINIRole 1MG TAB PO SCH (21:37)
--- NOTE | 2018-10-18 23:11 | MHIPNPDOC ---
[facility] Progress Note Progress Note DATE OF SERVICE: 10/18/18 HISTORY: HISTORY OF THE PRESENT ILLNESS: Patient is a 28 -year-old , male, who, according to ED report: "Reason for Referral pt was recently discharged from [facility] on 10/06/18, presents to ED stating he is actively suicidal with plan to OD on Heroin, then jump in the river.Self-mutilation noted to left arm(superficial lacerations noted). Chief Complaint Pt states, "I was discharged too early." Pt reports being discharged 2 wks ago, admits being compliant with medications the first few da ys, however decided to stop taking the Ability because of the side effects(RLS). Admits he was still doing well, but went to refill his medications(after the 7 day script was completed) and the pharmacist reported there was an insurance problem. He was directed to contact the insurance company, but did not follow through. As a result, he now is experiencing racing thoughts, sleep disturbances, and SI with plans(slitting wrists, OD on Heroin then jump in the River). In addition to pt's non-compliance; pt reports other stressors include struggling with poor self- esteem, and still debating on moving to [place]. He admits feeling overwhelmed today with suicidal thoughts, he mutilated left arm with a razor blade(numerous superficial lacerations noted)" VITAL SIGNS: See below. NEW TEST RESULTS: See below CURRENT MEDICATIONS: See below. MENTAL STATUS EXAMINATION: Patient is a 28-year old male, who is alert, cooperative, irritable, dressed in hospital clothes. Speech: Is normal in rate, tone and volume, spontaneous and fluent. Language skills are good. Thought processes including: linear, coherent. Thought content: depressive/anxious thoughts, guilty thoughts. Cognitive distortions Description of abnormal or psychotic thoughts: Denies SI today but admits to SI last night. Denies HI, denies AV hallucinations, denies thought delusions Judgment: poor. Insight: poor. Orientation: x 3. Recent and remote memory: intact. Attention span and concentration: good. Language: Hebrew. Fund of knowledge: average. Mood: depressed/anxious/irritable. Affect: congruent with mood. DIAGNOSES: 1. Bipolar 2 disorder. 2. Cluster B personality disorder. 3. Marijuana use d/o. ASSESSMENT: Patiet is very depressed, very anxious, torn apart because his girlfriend would rather see him in [place] than in [place]. He knows he will loose her and her children, are not his children but he has raised them. She has told him that she is going to allow him to talk to the children, to facetime them but he says that is not enough, he wants to see them everyday, not some days. He says he knows he has no legal rights on them, so, he fears not seeing them again but she has told him that if he ever wants to come visit them he would be able to stay at her house. He also worries about establishing in [place], he is afraid of tayong at his mother's house because one of his friend's who recently got released from skilled nursing lives only one block away from there and he knows that would be bad for him, to befriend him again. He says that he wants to stay away from drugs, he doesn't want to go to make mistakes and for that reason he would rather go to his stepfather house, where at least he knows he wouldn't be close to one of his previous friend's. He is afraid about the cost of life in [place], he is afraid of becoming homeless. MANAGEMENT PLAN: Will continue with the same treatment plan TIME SPENT: 25 minutes. Vital Signs Vital Signs Date Time Temp Pulse Resp B/P (MAP) Pulse Ox O2 Delivery O2 Flow Rate FiO2 10/18/18 18:00 98.4 82 16 122/81 (95) 10/18/18 11:27 Room Air 10/16/18 23:01 100 Current Medications Current Medications Acetaminophen (Tylenol Tab) 650 mg Q6HP PRN PO HEADACHE or DISCOMFORT; Start 10/16/18 at 23:45 Al Hydrox/Mg Hydrox/Simethicone (Mylanta) 30 ml Q4HP PRN PO HEARTBURN/INDIGESTION; Start 10/16/18 at 23:45 Aripiprazole (AbiLIFY) 5 mg DAILY PO ; Start 10/17/18 at 09:00; Stop 10/17/18 at 14:41; Status DC Benztropine Mesylate (Cogentin) 0.5 mg BID PO Last administered on 10/18/18at 21:36; Start 10/17/18 at 09:00 Divalproex Sodium (Depakote) 750 mg BID PO Last administered on 10/18/18 2 1:36; Start 10/17/18 at 09:00 Home Med (Med Rec Complete!) ASDIRECTED XX ; Start 10/16/18 at 23:45; Stop 10/16/18 at 23:45; Status DC Magnesium Hydroxide (Milk Of Magnesia) 30 ml DAILYPRN PRN PO CONSTIPATION; Start 10/16/18 at 23:45 Nicotine (Nicoderm Cq 21mg) 1 patch DAILY TD Last administered on 10/18/18 08:09; Start 10/17/18 at 09:00 Propranolol HCl (Inderal) 10 mg TIDP PRN PO RESTLESSNESS Last administered on 10/17/18 00:33; Start 10/16/18 at 23:45 Quetiapine Fumarate (SEROquel) 25 mg QAM PO Last administered on 10/18/18 08:09; Start 10/18/18 at 09:00 Quetiapine Fumarate (SEROquel) 150 mg QHS PO Last administered on 10/18/18 21:36; Start 10/17/18 at 21:00 Ropinirole HCl (Requip) 1 mg QHS PO Last administered on 10/18/18 21:37; Start 10/17/18 at 21:00 Trazodone HCl (Desyrel) 50 mg QHSP PRN PO INSOMNIA Last administered on 10/17/18 00:33; Start 10/16/18 at 23:45 Allergies Coded Allergies: Penicillins (Verified Allergy, Unknown, 09/29/18) HALEY GONZALEZ MD October 18, 2018 23:11
[2018-10-19 06:56] VITALS: BP 121/69
[2018-10-19] MEDS: DIVALPROEX 250 MG TAB PO SCH ×2 (09:05→22:23)
[2018-10-19] MEDS: QUEtiapine FUMARATE 25 MG TAB PO SCH (09:05)
[2018-10-19] MEDS: BENZTROPINE 0.5 MG TAB PO SCH ×2 (09:05→22:22)
[2018-10-19] MEDS: NICOTINE 21MG/24HR 1 EA TRANSDERMAL TD SCH (09:06)
[2018-10-19 18:00] VITALS: BP 132/79
--- NOTE | 2018-10-19 18:55 | MHIPNPDOC ---
A-FIB/CHADSVASC A-FIB History Current/History of A-Fib/PAF?: No Current Oral Anticoagulant The: No Age/Risk Factor Scoring CHADSVASC: CHADSVASC Response (Comments) Value Age Risk Factor Age < 65 years old 0 Gender Risk Factor Male 0 Hx of CHF No 0 Hx of HTN No 0 Hx of Stroke/TIA/or VTE No 0 Hx of Diabetes No 0 Hx of Vascular Disease No 0 Total 0 Treatment Treatment ordered: NONE Reason Anticoagulant not given: Not indicated/[id number] HALEY GONZALEZ MD October 19, 2018 18:55
[2018-10-19 19:23] VITALS: BP 127/68
[2018-10-19] MEDS: PROPRANOLOL 10 MG TAB PO PRN (19:23)
[2018-10-19] MEDS: rOPINIRole 1MG TAB PO SCH (22:20)
[2018-10-19] MEDS: QUEtiapine FUMARATE 50 MG TAB PO SCH (22:21)
[2018-10-20 07:09] VITALS: BP 100/59
[2018-10-20] MEDS: QUEtiapine FUMARATE 25 MG TAB PO SCH (08:53)
[2018-10-20] MEDS: DIVALPROEX 250 MG TAB PO SCH ×2 (08:53→23:00)
[2018-10-20] MEDS: BENZTROPINE 0.5 MG TAB PO SCH ×2 (08:53→22:59)
[2018-10-20] MEDS: NICOTINE 21MG/24HR 1 EA TRANSDERMAL TD SCH (08:54)
--- NOTE | 2018-10-20 17:03 | MHIPNPDOC ---
[facility] Progress Note Progress Note DATE OF SERVICE: 10/19/18 HISTORY: HISTORY OF THE PRESENT ILLNESS: Patient is a 28 -year-old , male, who, according to ED report: "Reason for Referral pt was recently discharged from [facility] on 10/06/18, presents to ED stating he is actively suicidal with plan to OD on Heroin, then jump in the river.Self-mutilation noted to left arm(superficial lacerations noted). Chief Complaint Pt states, "I was discharged too early." Pt reports being discharged 2 wks ago, admits being compliant with medications the first few da ys, however decided to stop taking the Ability because of the side effects(RLS). Admits he was still doing well, but went to refill his medications(after the 7 day script was completed) and the pharmacist reported there was an insurance problem. He was directed to contact the insurance company, but did not follow through. As a result, he now is experiencing racing thoughts, sleep disturbances, and SI with plans(slitting wrists, OD on Heroin then jump in the River). In addition to pt's non-compliance; pt reports other stressors include struggling with poor self- esteem, and still debating on moving to [place]. He admits feeling overwhelmed today with suicidal thoughts, he mutilated left arm with a razor blade(numerous superficial lacerations noted)" VITAL SIGNS: See below. NEW TEST RESULTS: See below CURRENT MEDICATIONS: See below. MENTAL STATUS EXAMINATION: Patient is a 28-year old male, who is alert, cooperative, irritable, dressed in hospital clothes. Speech: Is normal in rate, tone and volume, spontaneous and fluent. Very talkative Language skills are good. Thought processes including: linear, coherent. Thought content: Goal orientated, he is optimistic about the future. Description of abnormal or psychotic thoughts: Passive and fleeting SI. Denies HI, denies AV hallucinations, denies thought delusions Judgment: poor. Insight: poor. Orientation: x 3. Recent and remote memory: intact. Attention span and concentration: good. Language: Khmer. Fund of knowledge: average. Mood: depressed/anxious/irritable. Affect: congruent with mood. DIAGNOSES: 1. Bipolar 2 disorder. 2. Cluster B personality disorder. 3. Marijuana use d/o. ASSESSMENT: Patient reported on the 16 that he had a long conversation with Nurse and she helped him see his future in an optimistic way. He says that he has been communicating with his mother and she has reassured him about her support, she is going to send him the plane ticket. he still worries about not being able to see his children (his GF's children, but he has raised them. However, he has no legal rights, so he is afraid he is not going to be able to see them anymore. He says he is doing well on his medications at this time. MANAGEMENT PLAN: Will continue with the same treatment plan TIME SPENT: 25 minutes. Vital Signs Vital Signs Date Time Temp Pulse Resp B/P (MAP) Pulse Ox O2 Delivery O2 Flow Rate FiO2 10/20/18 07:09 97.9 77 14 100/59 (73) 10/18/18 11:27 Room Air 10/16/18 23:01 100 Current Medications Current Medications Acetaminophen (Tylenol Tab) 650 mg Q6HP PRN PO HEADACHE or DISCOMFORT; Start 10/16/18 at 23:45 Al Hydrox/Mg Hydrox/Simethicone (Mylanta) 30 ml Q4HP PRN PO HEARTBURN/INDIGESTION; Start 10/16/18 at 23:45 Aripiprazole (AbiLIFY) 5 mg DAILY PO ; Start 10/17/18 at 09:00; Stop 10/17/18 at 14:41; Status DC Benztropine Mesylate (Cogentin) 0.5 mg BID PO Last administered on 10/20/18at 08:53; Start 10/17/18 at 09:00 Divalproex Sodium (Depakote) 750 mg BID PO Last administered on 10/20/18at 08:53; Start 10/17/18 at 09:00 Home Med (Med Rec Complete!) ASDIRECTED XX ; Start 10/16/18 at 23:45; Stop 10/16/18 at 23:45; Status DC Magnesium Hydroxide (Milk Of Magnesia) 30 ml DAILYPRN PRN PO CONSTIPATION; Start 10/16/18 at 23:45 Nicotine (Nicoderm Cq 21mg) 1 patch DAILY TD Last administered on 10/20/18at 08:54; Start 10/17/18 at 09:00 Propranolol HCl (Inderal) 10 mg TIDP PRN PO RESTLESSNESS Last administered on 10/19/18at 19:23; Start 10/16/18 at 23:45 Quetiapine Fumarate (SEROquel) 25 mg QAM PO Last administered on 10/20/18at 08:53; Start 10/18/18 at 09:00 Quetiapine Fumarate (SEROquel) 150 mg QHS PO Last administered on 10/19/18at 22:21; Start 10/17/18 at 21:00 Ropinirole HCl (Requip) 1 mg QHS PO Last administered on 10/19/18at 22:20; Star t 10/17/18 at 21:00 Trazodone HCl (Desyrel) 50 mg QHSP PRN PO INSOMNIA Last administered on 10/17/18at 00:33; Start 10/16/18 at 23:45 Allergies Coded Allergies: Penicillins (Verified Allergy, Unknown, 09/29/18) A-FIB/CHADSVASC A-FIB History Current/History of A-Fib/PAF?: No Current Oral Anticoagulant The: No Age/Risk Factor Scoring CHADSVASC: CHADSVASC Response (Comments) Value Age Risk Factor Age < 65 years old 0 Gender Risk Factor Male 0 Hx of CHF No 0 Hx of HTN No 0 Hx of Stroke/TIA/or VTE No 0 Hx of Diabetes No 0 Hx of Vascular Disease No 0 Total 0 Treatment Treatment ordered: NONE Reason Anticoagulant not given: Not indicated/[id number] HALEY GONZALEZ MD October 20, 2018 16:57
--- NOTE | 2018-10-20 17:09 | MHIPNPDOC ---
[facility] Progress Note Progress Note DATE OF SERVICE: 10/20/18 HISTORY: HISTORY OF THE PRESENT ILLNESS: Patient is a 28 -year-old , male, who, according to ED report: "Reason for Referral pt was recently discharged from [facility] on 10/06/18, presents to ED stating he is actively suicidal with plan to OD on Heroin, then jump in the river.Self-mutilation noted to left arm(superficial lacerations noted). Chief Complaint Pt states, "I was discharged too early." Pt reports being discharged 2 wks ago, admits being compliant with medications the first few da ys, however decided to stop taking the Ability because of the side effects(RLS). Admits he was still doing well, but went to refill his medications(after the 7 day script was completed) and the pharmacist reported there was an insurance problem. He was directed to contact the insurance company, but did not follow through. As a result, he now is experiencing racing thoughts, sleep disturbances, and SI with plans(slitting wrists, OD on Heroin then jump in the River). In addition to pt's non-compliance; pt reports other stressors include struggling with poor self- esteem, and still debating on moving to [place]. He admits feeling overwhelmed today with suicidal thoughts, he mutilated left arm with a razor blade(numerous superficial lacerations noted)" VITAL SIGNS: See below. NEW TEST RESULTS: See below CURRENT MEDICATIONS: See below. MENTAL STATUS EXAMINATION: Patient is a 28-year old male, who is alert, cooperative, irritable, dressed in hospital clothes. Speech: Is normal in rate, tone and volume, spontaneous and fluent. Very talkative Language skills are good. Thought processes including: linear, coherent. Thought content: Goal orientated, he is optimistic about the future. Description of abnormal or psychotic thoughts: Passive and fleeting SI. Denies HI, denies AV hallucinations, denies thought delusions Judgment: poor. Insight: poor. Orientation: x 3. Recent and remote memory: intact. Attention span and concentration: good. Language: Hebrew. Fund of knowledge: average. Mood: depressed/anxious/irritable. Affect: congruent with mood. DIAGNOSES: 1. Bipolar 2 disorder. 2. Cluster B personality disorder. 3. Marijuana use d/o. 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 He says he is going to leave this area around the . november, he is going to start working at [employer], [place] [facility] [place] anhis mother has told him that his step dad might not charge him a rent because he is ill, so, he might consider having him in exchange for doing some house chores and driving him over for appointments because his step dad doesn't drive. He is vry talkative, it makes me think that he is still a little bit manic. This gag writer is going to increase his Seroquel in the morning to 50 mgs PO QAM MANAGEMENT PLAN: Will continue with the same treatment plan TIME SPENT: 25 minutes. Vital Signs Vital Signs Date Time Temp Pulse Resp B/P (MAP) Pulse Ox O2 Delivery O2 Flow Rate FiO2 10/20/18 07:09 97.9 77 14 100/59 (73) 10/18/18 11:27 Room Air 10/16/18 23:01 100 Current Medications Current Medications Acetaminophen (Tylenol Tab) 650 mg Q6HP PRN PO HEADACHE or DISCOMFORT; Start 10/16/18 at 23:45 Al Hydrox/Mg Hydrox/Simethicone (Mylanta) 30 ml Q4HP PRN PO HEARTBURN/INDIGESTION; Start 10/16/18 at 23:45 Aripiprazole (AbiLIFY) 5 mg DAILY PO ; Start 10/17/18 at 09:00; Stop 10/17/18 at 14:41; Status DC Benztropine Mesylate (Cogentin) 0.5 mg BID PO Last administered on 10/20/18at 08:53; Start 10/17/18 at 09:00 Divalproex Sodium (Depakote) 750 mg BID PO Last administered on 10/20/18at 08:53; Start 10/17/18 at 09:00 Home Med (Med Rec Complete!) ASDIRECTED XX ; Start 10/16/18 at 23:45; Stop 10/16/18 at 23:45; Status DC Magnesium Hydroxide (Milk Of Magnesia) 30 ml DAILYPRN PRN PO CONSTIPATION; Start 10/16/18 at 23:45 Nicotine (Nicoderm Cq 21mg) 1 patch DAILY TD Last administered on 10/20/18 08:54; Start 10/17/18 at 09:00 Propranolol HCl (Inderal) 10 mg TIDP PRN PO RESTLESSNESS Last administered on 10/19/18at 19:23; Start 10/16/18 at 23:45 Quetiapine Fumarate (SEROquel) 25 mg QAM PO Last administered on 10/20/18at 08:53; Start 10/18/18 at 09:00 Quetiapine Fumarate (SEROquel) 150 mg QHS PO Last administered on 10/19/18at 22:21; Start 10/17/18 at 21:00 Ropinirole HCl (Requip) 1 mg QHS PO Last administered on 10/19/18at 22:20; St art 10/17/18 at 21:00 Trazodone HCl (Desyrel) 50 mg QHSP PRN PO INSOMNIA Last administered on 10/17/18at 00:33; Start 10/16/18 at 23:45 Allergies Coded Allergies: Penicillins (Verified Allergy, Unknown, 09/29/18) A-FIB/CHADSVASC A-FIB History Current/History of A-Fib/PAF?: No Current Oral Anticoagulant The: No Age/Risk Factor Scoring CHADSVASC: CHADSVASC Response (Comments) Value Age Risk Factor Age < 65 years old 0 Gender Risk Factor Male 0 Hx of CHF No 0 Hx of HTN No 0 Hx of Stroke/TIA/or VTE No 0 Hx of Diabetes No 0 Hx of Vascular Disease No 0 Total 0 Treatment Treatment ordered: NONE Reason Anticoagulant not given: Not indicated/[id number] HALEY GONZALEZ MD October 20, 2018 17:09
[2018-10-20 18:36] VITALS: BP 130/80
[2018-10-20] MEDS: rOPINIRole 1MG TAB PO SCH (22:58)
[2018-10-20] MEDS: QUEtiapine FUMARATE 50 MG TAB PO SCH (22:58)
[2018-10-21 06:40] VITALS: BP 99/61
[2018-10-21] MEDS: DIVALPROEX 250 MG TAB PO SCH ×2 (08:27→23:32)
[2018-10-21] MEDS: BENZTROPINE 0.5 MG TAB PO SCH ×2 (08:27→23:32)
[2018-10-21] MEDS: NICOTINE 21MG/24HR 1 EA TRANSDERMAL TD SCH (08:27)
[2018-10-21] MEDS: QUEtiapine FUMARATE 25 MG TAB PO SCH (08:27)
--- NOTE | 2018-10-21 15:25 | MHIPNPDOC ---
[facility] Progress Note Progress Note DATE OF SERVICE: 10/21/18 HISTORY: 28-year-old male admitted and treated for bipolar disorder. VITAL SIGNS: See below. NEW TEST RESULTS:. Depakote level ordered by me. CURRENT MEDICATIONS: See below. MENTAL STATUS EXAMINATION: Patient is a 28 year old malewho is admitted here and treated for bipolar disorder. Speech: Is normal but somewhat rapid Language skills are adequate. Thought processes including:. Normal. Thought content: Normal. Abstract reasoning, and computation: Adequate. Description of associations:. No loose association. Description of abnormal or psychotic thoughts:. No psychotic thought. Judgment: Fair. Insight: Poor. Orientation: Full. Recent and remote memory: Intact. Attention span and concentration:. Intact. Language: No abnormalities. Fund of knowledge:. Full. Mood: Elevated. Affect: Bright. DIAGNOSES: 1. Bipolar disorder. ASSESSMENT: 28 year old male treated for bipolar disorder MANAGEMENT PLAN:, Discharge planning as per Dr Gerard. TIME SPENT: minutes. Vital Signs Vital Signs Date Time Temp Pulse Resp B/P (MAP) Pulse Ox O2 Delivery O2 Flow Rate FiO2 10/21/18 06:40 97.2 77 16 99/61 (74) 10/18/18 11:27 Room Air 10/16/18 23:01 100 Current Medications Current Medications Acetaminophen (Tylenol Tab) 650 mg Q6HP PRN PO HEADACHE or DISCOMFORT; Start 10/16/18 at 23:45 Al Hydrox/Mg Hydrox/Simethicone (Mylanta) 30 ml Q4HP PRN PO HEARTBURN/INDIGESTION; Start 10/16/18 at 23:45 Aripiprazole (AbiLIFY) 5 mg DAILY PO ; Start 10/17/18 at 09:00; Stop 10/17/18 at 14:41; Status DC Benztropine Mesylate (Cogentin) 0.5 mg BID PO Last administered on 10/21/18at 08:27; Start 10/17/18 at 09:00 Divalproex Sodium (Depakote) 750 mg BID PO Last administered on 10/21/18at 08:27; Start 10/17/18 at 09:00 Home Med (Med Rec Complete!) ASDIRECTED XX ; Start 10/16/18 at 23:45; Stop 10/16/18 at 23:45; Status DC Magnesium Hydroxide (Milk Of Magnesia) 30 ml DAILYPRN PRN PO CONSTIPATION; Start 10/16/18 at 23:45 Nicotine (Nicoderm Cq 21mg) 1 patch DAILY TD Last administered on 10/21/18 08:27; Start 10/17/18 at 09:00 Propranolol HCl (Inderal) 10 mg TIDP PRN PO RESTLESSNESS Last administered on 10/19/18 19:23; Start 10/16/18 at 23:45 Quetiapine Fumarate (SEROquel) 25 mg QAM PO Last administered on 10/21/18 08: 27; Start 10/18/18 at 09:00 Quetiapine Fumarate (SEROquel) 150 mg QHS PO Last administered on 10/20/18 22:58; Start 10/17/18 at 21:00 Ropinirole HCl (Requip) 1 mg QHS PO Last administered on 10/20/18 22:58; Start 10/17/18 at 21:00 Trazodone HCl (Desyrel) 50 mg QHSP PRN PO INSOMNIA Last administered on 10/17/18at 00:33; Start 10/16/18 at 23:45 Allergies Coded Allergies: Penicillins (Verified Allergy, Unknown, 09/29/18) A-FIB/CHADSVASC A-FIB History Current/History of A-Fib/PAF?: No Age/Risk Factor Scoring CHADSVASC: CHADSVASC Response (Comments) Value Age Risk Factor Age < 65 years old 0 Gender Risk Factor Male 0 Hx of CHF No 0 Hx of HTN No 0 Hx of Stroke/TIA/or VTE No 0 Hx of Diabetes No 0 Hx of Vascular Disease No 0 Total 0 Treatment Treatment ordered: NONE JEANINE FORMAN MD October 21, 2018 15:25
[2018-10-21 18:27] VITALS: BP 132/60
[2018-10-21] MEDS: rOPINIRole 1MG TAB PO SCH (23:32)
[2018-10-21] MEDS: QUEtiapine FUMARATE 50 MG TAB PO SCH (23:33)
[2018-10-22] MEDS: QUEtiapine FUMARATE 25 MG TAB PO SCH (08:32)
[2018-10-22] MEDS: DIVALPROEX 250 MG TAB PO SCH ×2 (08:32→22:42)
[2018-10-22] MEDS: BENZTROPINE 0.5 MG TAB PO SCH ×2 (08:32→22:42)
[2018-10-22] MEDS: NICOTINE 21MG/24HR 1 EA TRANSDERMAL TD SCH (08:32)
--- NOTE | 2018-10-22 15:18 | MHIPNPDOC ---
[facility] Progress Note Progress Note DATE OF SERVICE: 10/22/18 HISTORY: 28-year-old male admitted for bipolar disorder. VITAL SIGNS: See below. NEW TEST RESULTS:. Awaiting Depakote level. CURRENT MEDICATIONS: See below. MENTAL STATUS EXAMINATION: Patient is a 28-year old male, who is, admitted for bipolar disorder. Speech: Is, less rapid. Language skills are intact. Thought processes including:. Mildly rapid. Thought content:. Denies hallucinations, delusions, obsessions, compulsions or phobias. Abstract reasoning, and computation: Able to abstract. Description of associations:. No loose associations. Description of abnormal or psychotic thoughts:, Rapid thoughts. Judgment:, Fair. Insight: Good. Orientation: Full. Recent and remote memory: Intact. Attention span and concentration:. Adequate. Language: As above. Fund of knowledge:. Full. Mood: Elevated. Affect: Bright. DIAGNOSES: 1. Bipolar disorder. One. ASSESSMENT: 28-year-old male under treatment for bipolar disorder, improving MANAGEMENT PLAN:. As per treatment team. TIME SPENT: minutes. Vital Signs Vital Signs Date Time Temp Pulse Resp B/P (MAP) Pulse Ox O2 Delivery O2 Flow Rate FiO2 10/21/18 18:27 98.9 70 18 132/60 (84) 10/18/18 11:27 Room Air 10/16/18 23:01 100 Laboratory Data 24H Labs Laboratory Tests 2 10/21/18 15:24: Valproic Acid (Depakene) Level 95.9 Current Medications Current Medications Acetaminophen (Tylenol Tab) 650 mg Q6HP PRN PO HEADACHE or DISCOMFORT; Start at 23:45 Al Hydrox/Mg Hydrox/Simethicone (Mylanta) 30 ml Q4HP PRN PO HEARTBURN/INDIGESTION; Start 10/16/18 at 23:45 Aripiprazole (AbiLIFY) 5 mg DAILY PO ; Start 10/17/18 at 09:00; Stop 10/17/18 at 14:41; Status DC Benztropine Mesylate (Cogentin) 0.5 mg BID PO Last administered on 10/22/18at 08:32; Start 10/17/18 at 09:00 Divalproex Sodium (Depakote) 750 mg BID PO Last administered on 10/22/18at 08:32; Start 10/17/18 at 09:00 Home Med (Med Rec Complete!) ASDIRECTED XX ; Start 10/16/18 at 23:45; Stop 10/16/18 at 23:45; Status DC Magnesium Hydroxide (Milk Of Magnesia) 30 ml DAILYPRN PRN PO CONSTIPATION Last administered on 10/21/18 18:24; Start 10/16/18 at 23:45 Nicotine (Nicoderm Cq 21mg) 1 patch DAILY TD Last administered on 10/22/18 08:32; Start 10/17/18 at 09:00 Propranolol HCl (Inderal) 10 mg TIDP PRN PO RESTLESSNESS Last administered on 10/19/18 19:23; Start 10/16/18 at 23:45 Quetiapine Fumarate (SEROquel) 25 mg QAM PO Last administered on 10/22/18 08:32; Start 10/18/18 at 09:00 Quetiapine Fumarate (SEROquel) 150 mg QHS PO Last administered on 10/21/18 23:33; Start 10/17/18 at 21:00 Ropinirole HCl (Requip) 1 mg QHS PO Last administered on 10/21/18 23:32; Start 10/17/18 at 21:00 Trazodone HCl (Desyrel) 50 mg QHSP PRN PO INSOMNIA Last administered on 10/17/18 00:33; Start 10/16/18 at 23:45 Allergies Coded Allergies: Penicillins (Verified Allergy, Unknown, 09/29/18) A-FIB/CHADSVASC A-FIB History Current/History of A-Fib/PAF?: No Current Oral Anticoagulant The: No Age/Risk Factor Scoring CHADSVASC: CHADSVASC Response (Comments) Value Age Risk Factor Age < 65 years old 0 Gender Risk Factor Male 0 Hx of CHF No 0 Hx of HTN No 0 Hx of Stroke/TIA/or VTE No 0 Hx of Diabetes No 0 Hx of Vascular Disease No 0 Total 0 Treatment Treatment ordered: NONE JEANINE FORMAN MD October 22, 2018 15:18
[2018-10-22 18:00] VITALS: BP 126/57
[2018-10-22] MEDS: rOPINIRole 1MG TAB PO SCH (22:42)
[2018-10-22] MEDS: QUEtiapine FUMARATE 50 MG TAB PO SCH (22:42)
[2018-10-23] MEDS: DIVALPROEX 250 MG TAB PO SCH (08:02)
[2018-10-23] MEDS: BENZTROPINE 0.5 MG TAB PO SCH (08:02)
[2018-10-23] MEDS: QUEtiapine FUMARATE 25 MG TAB PO SCH (08:02)
[2018-10-23] MEDS: NICOTINE 21MG/24HR 1 EA TRANSDERMAL TD SCH (08:03)
[2018-10-23] MEDS ORDERED: QUET1TAB7 PO (13:06)
[2018-10-23] MEDS ORDERED: PROP10TA56 PO (13:06)
[2018-10-23] MEDS ORDERED: DIVA250T67 PO (13:06)
[2018-10-23] MEDS ORDERED: BENZ0.5T PO (13:06)
[2018-10-23] MEDS ORDERED: ROPI1TAB PO (13:06)
[2018-10-23] MEDS ORDERED: NICO21PAT TD (13:06)
[2018-10-23] MEDS ORDERED: QUET1TAB9 PO (13:06)
--- NOTE | 2018-10-24 16:16 | MHDSPDOC ---
[facility] Discharge Summary Discharge Summary DATE OF ADMISSION: October 16, 2018 at 23:31 DATE OF DISCHARGE: October 23, 2018 at 13:50 DISCHARGE DIAGNOSES: 1. Other specified mood disorder, r/o bipolar 2 disorder 2. Borderline personality disorder 3. Cannabis use disorder REASON FOR ADMISSION: Patient is a 28 -year-old , male, who, according to ED report: "Reason for Referral pt was recently discharged from [facility] on 10/06/18, presents to ED stating he is actively suicidal with plan to OD on Heroin, then jump in the river.Self-mutilation noted to left arm(superficial lacerations noted). Chief Complaint Pt states, "I was discharged too early." Pt reports being discharged 2 wks ago, admits being compliant with medications the first few days, however decided to stop taking the Ability because of the side effects(RLS). Admits he was still doing well, but went to refill his medications(after the 7 day script was completed) and the pharmacist reported there was an insurance problem. He was directed to contact the insurance company, but did not follow through. As a result, he now is experiencing racing thoughts, sleep disturbances, and SI with plans(slitting wrists, OD on Heroin then jump in the River). In addition to pt's non-compliance; pt reports other stressors include struggling with poor self- esteem, and still debating on moving to [place]. He admits feeling overwhelmed today with suicidal thoughts, he mutilated left arm with a razor blade(numerous superficial lacerations noted)" CONSULTANTS INVOLVED: None TREATMENT AND PROGRESS ON THE UNIT : The patient came to the Unit because he was overwhelmed by a family/relationship situation. His girlfriend and himself have been having some problems for some time. she has told him that it would be better for him to go back to [place] where he is originally from, because he has no other support than her in this area. She is a little bit older than him, she lives with him and three of her children that are not his but he has raised them. They have been together for approximately 6 years and he is very attached to her children, especially the little one. H has feared going back to [place] because he has no legal rights over the children and he is afraid she is not going to let them see him again but this time she told him that she would allow him see them, that they could facetime and if he wanted to come and visit he would be able to do that. He felt calmer when he heard this but as he said, seeing them through a phone screen is never going to be the same than being with them. He was aware that he had contributed to this situation. He decided it would be better for her to go back to [place], where he has relative and friends, instead of staying here longer because it was going to be more painful for him and the children. he spoke with his mother and she told him that she would snd him his plane ticket scheduled to depart on November 10. He already had made arrangements with a friend to see i he could get a job in [facility], close to his mother's home and had made arrangements to stay with his mother for some time and then with his stepfather. when he arrived to this Unit he reported he had developed restless legs shortly after he was discharged last time and he blamed it on Abilify, so, he stopped taking the medication (he only had to take 2 weeks because he already had received the PATEL shortly before leaving the hospital on his previous admission and at that time he didn't have restless legs) and he had stopped taking other medications. This time he was started on Seroquel 200 mgs PO QHS and 25 mgs PO QAM. he responded well to it. He took Depakote, 750 mgs PO BID, Cogentin 0.5 mgs PO BID, REquip for restless legs 1 mg PO QHS, Propranolol 10 mgs PO TIDP for severe anxiety or restless legs and he is scheduled to have his Abilify Mantenna 400 mgs IM on 11/06/18 and I recommended him taking the injection, however it's up to him if he does it. I told him I don't think his resltes legs are a consequence of taking Abilify. They have been controlled by Requip. since the patient is flying to [place] on the . his GF agreed to supervise his medications because he will eliane froylan medication, so, they were prescribed as a month supply, not a week supply as we usually prescribe them in [facility]. since is going to take some time for him to get established in [place], his GF will send him his refills and his mother has compromised to supervise his medications and him taking them appropriately once he comes back home ([place]) HOSPITAL COURSE: As above DISCHARGE ASSESSMENT: patient was not suicidal, not homicidal, not psychotic, he was future orientated, he had a plan for his future life in [place], he already had made arrangements to go to [employer] and work in there, he had thoughts about going to the [place]. MENTAL STATUS EXAMINATION ON DISCHARGE: General Appearance: well groomed, appears stated age, hospital scubs/clothing Build: average Demeanor: preoccupied Eye Contact: average Activity: average Behavior: cooperative Speech: clear, spontaneous, reg/rate,rhythm,volume Mood: elevated Affect: full, appropriate, congruent, anxious, elevated Thought Process: logical/linear Thought Content (Delusions): none reported Thought Content (Other): goal orientated, positive, optimistic about his future,denies thought delusions, denies SI, denies HI, denies AV hallucinations Thought Content (Aggressive): none reported Perception (Hallucinations): none reported Perception (Other): none reported Cognition (Impairment of): none reported Cognition(Intelligence Est.): average Oriented: Awake, Alert, Oriented times three Insight: improving Judgment: improving Psychosis: Denies MEDICATIONS ON DISCHARGE: Scheduled Aripiprazole (Abilify Maintena) 400 Mg Suser.syr, 400 MG IM MTHLY, (Reported) ADMINISTERED FOR OCTOBER, NEXT DOSE LISTED FOR 11/06/18 Benztropine Mesylate (Benztropine Mesylate) 0.5 Mg Tablet, 0.5 MG PO BID for EPS, #60 Divalproex Sodium (Divalproex Sodium) 250 Mg Tablet.dr, 750 MG PO BID for MOOD, #60 Nicotine (Nicotine Patch) 21 Mg Patch.td24, 1 PATCH TD DAILY for NICOTINE CRAVINGS, #30 Quetiapine Fumarate (Quetiapine Fumarate) 200 Mg Tablet, 200 MG PO QHS for MOOD/INSOMNIA, #30 Quetiapine Fumarate (Quetiapine Fumarate) 25 Mg Tablet, 25 MG PO QAM for MOOD, #30 Ropinirole HCl (Ropinirole HCl) 1 Mg Tablet, 1 MG PO QHS for RESTLESS LEGS, #30 Scheduled PRN Propranolol HCl (Propranolol HCl) 10 Mg Tablet, 10 MG PO TIDP PRN for RESTLESSNESS, #90 PLAN/FOLLOWUP ARRANGEMENTS: Follow Up Care Education Label * Mental Health Appt 1 * Mental Health [facility] * Established With This Provider Yes * Therapist SABA * Date October 27, 2018 * Time 08:00 * Address of Clinic or Practice [address] * * Additional information 5-DAY FOLLOW-UP. Follow Up Care Education Label * Medical * Medical Follow Up [facility] * Established With This Provider Yes * Address of Clinic or Practice [address] [place] [address] * * Additional information PT FOLLOWS AT [facility] ON A WALK-IN BASIS. Follow Up Care Education Label * Mental Health Appt 2 * Mental Health [facility] * Established With This Provider Yes * Therapist JENNIFER MOSHER * Date October 31, 2018 * Time 08:00 * The amount of time spent in the coordination of care for this patient was approximately 30 minutes. Vital Signs/I&Os Vital Signs Date Time Temp Pulse Resp B/P (MAP) Pulse Ox O2 Delivery O2 Flow Rate FiO2 10/22/18 18:00 98.9 96 18 126/57 (80) 10/18/18 11:27 Room Air Medications Scheduled Aripiprazole (Abilify Maintena) 400 Mg Suser.syr, 400 MG IM MTHLY, (Reported) ADMINISTERED FOR OCTOBER, NEXT DOSE LISTED FOR 11/06/18 Benztropine Mesylate (Benztropine Mesylate) 0.5 Mg Tablet, 0.5 MG PO BID for EPS, #60 Divalproex Sodium (Divalproex Sodium) 250 Mg Tablet.dr, 750 MG PO BID for MOOD, #60 Nicotine (Nicotine Patch) 21 Mg Patch.td24, 1 PATCH TD DAILY for NICOTINE CRAVINGS, #30 Quetiapine Fumarate (Quetiapine Fumarate) 200 Mg Tablet, 200 MG PO QHS for MOOD/INSOMNIA, #30 Quetiapine Fumarate (Quetiapine Fumarate) 25 Mg Tablet, 25 MG PO QAM for MOOD, #30 Ropinirole HCl (Ropinirole HCl) 1 Mg Tablet, 1 MG PO QHS for RESTLESS LEGS, #30 Scheduled PRN Propranolol HCl (Propranolol HCl) 10 Mg Tablet, 10 MG PO TIDP PRN for RESTLESSNESS, #90 Allergies Coded Allergies: Penicillins (Verified Allergy, Unknown, 09/29/18) HALEY GONZALEZ MD October 24, 2018 16:12
== END 2018-10-23 13:50 | disposition home or self-care (01) | DRG 885 ==
LOC: M ED 21:27 → M ED INP 23:31 → M PSY 10-17 00:10
PROVIDERS: ADMIT Psychiatry & Neurology Psychiatry; ATTEND Psychiatry & Neurology Psychiatry
DX: F31.81 Bipolar II disorder (principal); R45.851 Suicidal ideations; Z91.19 Patient's noncompliance with other medical treatment and regimen; F60.3 Borderline personality disorder; F12.90 Cannabis use, unspecified, uncomplicated; Z88.0 Allergy status to penicillin; Z79.899 Other long term (current) drug therapy; F17.200 Nicotine dependence, unspecified, uncomplicated; F41.9 Anxiety disorder, unspecified